=== PATIENT | male | born 1945 | race Caucasian/White ===

== ENCOUNTER 2017-11-25 06:15 | Day surgery (SDC) | payer MEDICARE, OTHER ==
[~2017-11-25] VITALS: Ht 170.2 cm; Wt 85.6 kg
[~2017-11-25 06:15] MED LIST: ASPI81EC PO; CYCL10 PO; HCTZ; HYDCHL25 PO; LISI20 PO; OXYACE5T PO; OXYC10ER PO; OXYC30ER PO; PRED20 PO; PROM25 PO; TAMS.4ER PO
[2017-11-25] MEDS ORDERED: RANI150EL (07:03)
[2017-11-25] MEDS ORDERED: Ms Contin30 MG (07:04)
[2017-11-25] MEDS ORDERED: TAGRISSO80 MG (07:05)
[2017-11-25] MEDS ORDERED: Depo-Subq104 MG/0.6 (07:05)
[2017-11-25] MEDS ORDERED: Saw Palmetto160 MG (07:06)
[2017-11-25] MEDS ORDERED: Zantac150 MG (07:06)
== END 2017-11-25 09:05 | disposition home or self-care (01) ==
LOC: ORSCSDS 06:15
PROVIDERS: Orthopaedic Surgery
PROC: 01N50ZZ Release Median Nerve, Open Approach (ICD-10-PCS; principal; 2017-11-25 07:30)
DX: G56.01 Carpal tunnel syndrome, right upper limb (principal); I10 Essential (primary) hypertension; E78.5 Hyperlipidemia, unspecified; Z79.899 Other long term (current) drug therapy; N40.0 Benign prostatic hyperplasia without lower urinary tract symptoms
CPT/HCPCS: J0690; J2250; J3010; J7120

== ENCOUNTER → 2018-06-03 | Outpatient (CLI) | payer MEDICARE, OTHER ==
[~2018-06-03] MED LIST changes: +Depo-Subq104 MG/0.6; +Ms Contin30 MG; +RANI150EL; +Saw Palmetto160 MG; +TAGRISSO80 MG; +Zantac150 MG
== END | disposition home or self-care (01) ==
LOC: LAB SHORT 08:41 → LAB EV 08:41
DX: J02.9 Acute pharyngitis, unspecified (principal)
CPT/HCPCS: 87070

== ENCOUNTER 2019-01-18 11:41 | Day surgery (SDC) | payer MEDICARE, OTHER ==
[~2019-01-18] VITALS: Ht 167 cm; Wt 84.1 kg
[~2019-01-18 11:41] MED LIST changes: +DOXY100 PO; +Depo-Testos200 MG/ML IM; -Ms Contin30 MG; +Ms Contin30 MG PO; +Percocet 10-321 EACH PO; -RANI150EL; +RANI150EL PO; -Saw Palmetto160 MG; +Saw Palmetto160 MG PO; -TAGRISSO80 MG; +TAGRISSO80 MG PO
--- NOTE | 2019-01-18 13:09 | NUR ---
Ambulatory in Day Surgery History, Chart, Medications and Allergies reviewed before start of procedure.Patient confirms NPO status and agrees with scheduled surgery. Patient reports completing Chlorhexadine shower X2 prior to admission to hospital.Surgical site prepped with 2% Chlorhexidine cloth wipe. Lungs clear T/O to Auscultation. PT GLASSES REMOVED AND GIVEN TO
--- NOTE | 2019-01-18 13:46 | NUR ---
SMALL SKIN ABRASIONS PRESENT ON RIGHT LOWER EXTREMITY. DR. ROE AWARE.
--- NOTE | 2019-01-18 18:42 | NUR ---
SHIFT SUMMARY PATIENT ARRIVED TO UNIT FROM OR IN BED. COMPLAINTS OF PAIN MEDICATED PER EMAR. PATIENT ALERT AND ORIENTED. 96% ON ROOM AIR. STATES URGE TO PEE BUT HAS YET TO VOID. BULKY DRESSING IN PLACE CDI. POLAR GIANNA IN PLACE. PULSES PALPABLE BILATERALLY. DENIES N/T.
--- NOTE | 2019-01-19 00:52 | NUR ---
PT CONT TO BE UNABLE TO VOID. PT GIVEN FLOMAX LATER TONIGHT. PT REQ TO WAIT A LITTLE WHILE LONGER AND HE WILL ATTEMPT TO VOID AGAIN, REPORTS DOES NOT WANT TO HAVE S/C AT THIS TIME.
[2019-01-19 04:24] LABS: BASOPHILS ABSOLUTE AUTO 0.01 K/mm3 (0.00-0.23); BASOPHILS PERCENT AUTO 0 % (0-2); EOSINOPHILS ABSOLUTE AUTO 0.02 K/mm3 (0.00-0.68); EOSINOPHILS PERCENT AUTO 0 % (0-6); Hematocrit 35.4 % (37.0-53.0); Hemoglobin 11.5 g/dL (13.5-17.5); IMMATURE GRAN ABSOLUTE AUTO 0.01 K/mm3 (0.00-0.10); IMMATURE GRAN PERCENT AUTO 0 % (0-1); LYMPHOCYTES ABSOLUTE AUTO 0.43 K/mm3 (0.84-5.20); LYMPHOCYTES PERCENT AUTO 9 % (21-46); MONOCYTES ABSOLUTE AUTO 0.43 K/mm3 (0.16-1.47); MONOCYTES PERCENT AUTO 9 % (4-13); Mean Corpuscular HGB 28.7 pg (26.0-34.0); Mean Corpuscular HGB Conc 32.5 g/dL (31.5-36.5); Mean Corpuscular Volume 88 fL (80-100); NEUTROPHILS ABSOLUTE AUTO 3.86 K/mm3 (1.96-9.15); NEUTROPHILS PERCENT AUTO 81 % (41-73); Platelet Count 129 K/mm3 (150-400); RDW Coefficient Variation 13.9 % (11.7-14.2); RDW Standard Deviation 45.5 fL (35.1-46.3); Red Blood Cell Count 4.01 M/mm3 (4.30-5.90); White Blood Cell Count 4.76 K/mm3 (4.00-11.30)
[2019-01-19 04:44] LABS: Bun/Creatinine Ratio 16.8 (12.0-20.0); Calcium, Blood 8.3 mg/dL (8.5-10.1); Creatinine, Blood 1.37 mg/dL (0.60-1.20); Magnesium, Blood 1.9 mg/dL (1.6-2.4)
--- NOTE | 2019-01-19 07:39 | NUR ---
SHIFT SUMMARY PT EATING AND DRINKING. PT VOIDING. PT BEEN UP TO CHAIR THIS AM. PT AMBULATED IN HALLWAY WITH ASSIST LAST NIGHT. PT BEEN ASSISTED WITH ADL'S PRN. PT BEEN MED FOR PAIN PRN.
[2019-01-19] MEDS ORDERED: ASPI325EC PO (12:15)
--- NOTE | 2019-01-19 12:16 | NUR ---
Patient is sitting on a chair with spouse, Cristina, bedside. 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 Patient is very dedicated to his Chritian debbie and finds strength and inspiration to push through the difficulties of life. I listen empathically and provided pastoral litigation counsel, quotation of inspirational Bible verses and prayer. Patient responds well and shows signs of an elevated mood.
--- NOTE | 2019-01-19 12:38 | NUR ---
Patient up to Ambulate independently. Gait steady. Discharge instructions reviewed with patient. Patient verbalizes understanding. Copy given to patient to take home. Dressing to procedure site clean, dry, intact with no visible drainage, swelling, erythema or bruising noted. Patient States Post-Procedure ride home has been arranged. Discharged via wheelchair to private car for ride home. at bedside who is at-home swimming coach or instructor. Pt given wound care supplies to take home.
== END 2019-01-19 13:33 | disposition home or self-care (01) ==
LOC: ORSCMMR 11:41 → ORD 14:00 → SURS 18:15 → ORSCMMR 01-19 13:33 → SURS 01-19 13:33
PROVIDERS: Orthopaedic Surgery
PROC: 0SRC069 Replacement of Right Knee Joint with Oxidized Zirconium on Polyethylene Synthetic Substitute, Cemented, Open Approach (ICD-10-PCS; principal; 2019-01-18 14:00)
DX: M17.11 Unilateral primary osteoarthritis, right knee (principal); I10 Essential (primary) hypertension; N40.0 Benign prostatic hyperplasia without lower urinary tract symptoms; Z79.82 Long term (current) use of aspirin; Z79.899 Other long term (current) drug therapy; E78.5 Hyperlipidemia, unspecified
CPT/HCPCS: 36415; 73560-RT; 80048; 83735; 85025; 86850; 86900; 86901; 88300; 97110; 97116; 97161; 97530; C1713; C1776; J0171; J0690; J0735; J1170; J1885; J2250; J2270; J2370; J2405; J2704; J2795; J3010; J7120

== ENCOUNTER → 2021-06-07 | Outpatient (CLI) | payer MEDICARE, OTHER ==
[~2021-06-07] MED LIST changes: +ASPI325EC PO; +Aspirin EC81 MG PO; +Cialis5 MG; +Cyclobenzaprine5 MG; +DOXYCYCLINE HY100 M1 PO; +Depo-Testo100 MG/1 M; +MORP30 PO; +Oxybutynin Chlo10 MG PO; +PERCOCET 10-321 EAC2 PO; +PROM25; +Ranitidine HCl150 M1 PO; +ZESTRIL40 M1 PO
[2021-06-07 15:17] LABS: BASOPHILS ABSOLUTE AUTO 0.01 K/mm3 (0.00-0.23); BASOPHILS PERCENT AUTO 0 % (0-2); EOSINOPHILS ABSOLUTE AUTO 0.17 K/mm3 (0.00-0.68); EOSINOPHILS PERCENT AUTO 4 % (0-6); Hematocrit 37.8 % (37.0-53.0); Hemoglobin 13.3 g/dL (13.5-17.5); IMMATURE GRAN ABSOLUTE AUTO 0.01 K/mm3 (0.00-0.10); IMMATURE GRAN PERCENT AUTO 0 % (0-1); LYMPHOCYTES ABSOLUTE AUTO 0.62 K/mm3 (0.84-5.20); LYMPHOCYTES PERCENT AUTO 13 % (21-46); MONOCYTES PERCENT AUTO 8 % (4-13); Mean Corpuscular HGB Conc 35.2 g/dL (31.5-36.5); Mean Corpuscular Volume 85 fL (80-100); Mean Platelet Volume 9.5 fL (9.1-12.4); NEUTROPHILS ABSOLUTE AUTO 3.58 K/mm3 (1.96-9.15); NEUTROPHILS PERCENT AUTO 75 % (41-73); Platelet Count 169 K/mm3 (150-400); RDW Coefficient Variation 12.8 % (11.7-14.2); RDW Standard Deviation 39.7 fL (35.1-46.3); Red Blood Cell Count 4.44 M/mm3 (4.30-5.90); White Blood Cell Count 4.79 K/mm3 (4.00-11.30)
[2021-06-07 15:32] LABS: Albumin, Blood 3.6 g/dL (3.4-5.0); Albumin/Globulin Ratio 1.2 (0.8-1.8); Bilirubin, Total 0.6 mg/dL (0.1-1.0); Bun/Creatinine Ratio 21.6 (12.0-20.0); Calcium, Blood 8.8 mg/dL (8.5-10.1); Creatinine, Blood 1.71 mg/dL (0.60-1.20); Potassium, Blood 4.8 mmol/L (3.5-5.5); Total Protein, Blood 6.6 g/dL (6.4-8.2)
== END | disposition home or self-care (01) ==
LOC: LAB SHORT 15:10
PROVIDERS: Physician Assistant
DX: R07.89 Other chest pain (principal); R06.00 Dyspnea, unspecified
CPT/HCPCS: 80053; 83880; 84484; 85025; 85379

== ENCOUNTER → 2021-06-09 | Outpatient (CLI) | payer MEDICARE, OTHER ==
[2021-06-09 10:57] LABS: BASOPHILS ABSOLUTE AUTO 0.02 K/mm3 (0.00-0.23); BASOPHILS PERCENT AUTO 0 % (0-2); EOSINOPHILS ABSOLUTE AUTO 0.11 K/mm3 (0.00-0.68); EOSINOPHILS PERCENT AUTO 2 % (0-6); Hematocrit 37.7 % (37.0-53.0); Hemoglobin 12.9 g/dL (13.5-17.5); IMMATURE GRAN ABSOLUTE AUTO 0.03 K/mm3 (0.00-0.10); IMMATURE GRAN PERCENT AUTO 1 % (0-1); LYMPHOCYTES ABSOLUTE AUTO 0.37 K/mm3 (0.84-5.20); LYMPHOCYTES PERCENT AUTO 8 % (21-46); MONOCYTES ABSOLUTE AUTO 0.37 K/mm3 (0.16-1.47); MONOCYTES PERCENT AUTO 8 % (4-13); Mean Corpuscular HGB 29.6 pg (26.0-34.0); Mean Corpuscular HGB Conc 34.2 g/dL (31.5-36.5); Mean Corpuscular Volume 87 fL (80-100); Mean Platelet Volume 9.2 fL (9.1-12.4); NEUTROPHILS PERCENT AUTO 81 % (41-73); Platelet Count 183 K/mm3 (150-400); RDW Coefficient Variation 12.7 % (11.7-14.2); RDW Standard Deviation 40.3 fL (35.1-46.3); Red Blood Cell Count 4.36 M/mm3 (4.30-5.90)
[2021-06-09 11:26] LABS: Bun/Creatinine Ratio 21.1 (12.0-20.0); Creatinine, Blood 1.33 mg/dL (0.60-1.20); Potassium, Blood 4.8 mmol/L (3.5-5.5)
== END ==
LOC: LAB 10:51 → LAB SHORT 10:51
PROVIDERS: Physician Assistant
DX: J18.9 Pneumonia, unspecified organism (principal)
CPT/HCPCS: 80048; 85025

== ENCOUNTER 2021-06-13 22:36 | Inpatient (IN) | payer MEDICARE, OTHER ==
[~2021-06-13] VITALS: Ht 170.2 cm; Wt 86.2 kg
[2021-06-13 23:04] LABS: BASOPHILS ABSOLUTE AUTO 0.02 K/mm3 (0.00-0.23); BASOPHILS PERCENT AUTO 0 % (0-2); EOSINOPHILS ABSOLUTE AUTO 0.19 K/mm3 (0.00-0.68); EOSINOPHILS PERCENT AUTO 3 % (0-6); Hematocrit 38.6 % (37.0-53.0); Hemoglobin 13.2 g/dL (13.5-17.5); IMMATURE GRAN ABSOLUTE AUTO 0.05 K/mm3 (0.00-0.10); IMMATURE GRAN PERCENT AUTO 1 % (0-1); LYMPHOCYTES ABSOLUTE AUTO 0.55 K/mm3 (0.84-5.20); LYMPHOCYTES PERCENT AUTO 8 % (21-46); MONOCYTES ABSOLUTE AUTO 0.52 K/mm3 (0.16-1.47); MONOCYTES PERCENT AUTO 8 % (4-13); Mean Corpuscular HGB 29.1 pg (26.0-34.0); Mean Corpuscular HGB Conc 34.2 g/dL (31.5-36.5); Mean Corpuscular Volume 85 fL (80-100); Mean Platelet Volume 9.8 fL (9.1-12.4); NEUTROPHILS ABSOLUTE AUTO 5.38 K/mm3 (1.96-9.15); NEUTROPHILS PERCENT AUTO 80 % (41-73); Platelet Count 179 K/mm3 (150-400); RDW Coefficient Variation 12.7 % (11.7-14.2); RDW Standard Deviation 39.3 fL (35.1-46.3); Red Blood Cell Count 4.53 M/mm3 (4.30-5.90); White Blood Cell Count 6.71 K/mm3 (4.00-11.30)
[2021-06-13 23:16] LABS: Albumin, Blood 2.7 g/dL (3.4-5.0); Albumin/Globulin Ratio 0.8 (0.8-1.8); Bilirubin, Total 0.6 mg/dL (0.1-1.0); Bun/Creatinine Ratio 21.2 (12.0-20.0); Calcium, Blood 9.1 mg/dL (8.5-10.1); Creatinine, Blood 1.46 mg/dL (0.60-1.20); Globulin, Blood 3.6 g/dL (2.2-4.0); Potassium, Blood 4.7 mmol/L (3.5-5.5); Total Protein, Blood 6.3 g/dL (6.4-8.2)
[2021-06-14 00:17] LABS: Influenza A, PCR NEGATIVE (NEGATIVE); Influenza B, PCR NEGATIVE (NEGATIVE); Resp Syncytial Virus, PCR NEGATIVE (NEGATIVE); SARS-Cov-2 (COVID-19) PCR, MMC NEGATIVE (NEGATIVE)
--- NOTE | 2021-06-14 03:46 | NUR ---
PT ARRIVED WITH ALEJANDRO PAYNE FROM THE ED AT 0245. WEARING THE NON-REBREATHER AT 10L, PT COMPLAINING OF PAIN AND SHORTNESS OF BREATH. OXYGEN TURNED UP TO 15L AND MEDICATED WITH THE MS CONTIN. HE STATES THAT HE TAKES HIS PAIN MEDS DIFFERENTLY THAN PRESCRIBED SO WILL NEED TO DISCUSS THAT WITH ROUNDING DOCS IN THE AM. 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 HE STATES HE HAS PAIN ALL THE TIME. HE STATES HE BEGAN WITH THIS ILLNESS LAST WEEK BUT HAS CONTINUED TO STRUGGLE TO GET HIS BREATH. HIS LUNGS ARE DIMINISHED THROUGHOUT AND TIGHT. HE IS STILL TRYING TO BE INDEPENDENT, IE WITH WANTING TO STAND TO USE THE URINAL, HE DROPPED HIS SATS TO MID 70'S WHILE STANDING TO VOID. I OFFERED HIM A CATHETER AND HE DECLINED AT THIS TIME. WAS IN TO SEE THE PATIENT BEFORE HEADING HOME FOR REST. PT SHOWN THE CALL LIGHT AND BED ADJUSTMENTS.
--- NOTE | 2021-06-14 06:30 | NUR ---
ALEX HAS BEEN TRYING TO REST SINCE ARRIVAL, HE CONTINUES TO HAVE BOUTS OF PAIN AND GRABS AT HIS TRUNK. HE HAS BEEN MEDICATED WITH THE M.S. CONTIN AND THE SCHEDULED OXYCODONE. HE HAS BEEN TAKING IN FLUIDS BY SIPS. HE DOESN'T TOLERATE BEING OFF THE NRB FOR ANY PERIOD OF TIME WITHOUT FEELING SHORT OF BREATH AND HIS SATS BEGINNING TO DROP. HE HAS BEEN HAVING R-ON-T PVC'S AND SOME RUNS OF SVT. HIS BLOOD PRESSURE REMAIN 130'S/70S, SATS 95%. USES URINAL APPROPRIATELY. WILL CONTINUE TO MONITOR AND REPORT OFF WHEN ABLE.
--- NOTE | 2021-06-14 09:59 | NUR ---
UPDATE: DR ALVES @ BEDSIDE. DISCUSSED CONCERNS FOR PT's PERSISTENT PAIN & HOME PAIN MED REGIMEN. ORDERS GIVEN FOR 1-2 TABS OXYCODONE 10/325 q6hr & TO CHANGE MORPHINE ORDER TO BID THIS IS CLOSEST TO WHAT & HOW HE TAKES HIS MEDS @ HOME. PT & SPOUSE @ BEDSIDE ARE AGREEABLE, PT MEDICATED ACCORDINGLY. PT VERBALIZES NERVOUSNESS ABOUT TAKING OFF HF MASK TO TAKE MEDS, APPEARS ANXIOUS & PANICKED WHEN MASK IS SHORTLY REMOVED FOR ESTIMATOR PRINTING. SPO2 MAINTAINED >90%, NO SOB OR DYSPNEA NOTED. CALL LIGHT W/IN REACH, PT ABLE TO MAKE NEEDS KNOWN.
--- NOTE | 2021-06-14 11:37 | NUR ---
UPDATE: HOSP ROUNDING. HOSPITALISTLUL, @ BEDSIDE FOR AM ROUNDS. UPDATED ON MORNING EVENTS. PT APPEARS MUCH MORE COMFORTABLE. RESTING IN BED W/ EYES CLOSED. AWAKES EASILY TO VERB STIM. SATS IMPROVED TO 95% ON VENTI MASK @ 100% FiO2.
--- NOTE | 2021-06-14 14:00 | NUR ---
PT UNABLE TO TOLERATE BREAK FROM VENTI MASK LONG ENOUGH TO EAT LUNCH, THOUGH ABLE TO TAKE SM BITES OF JELLO. PT STS HE FEELS TOO SOB TO CHEW & DOESN'T FEEL SAFE EATING FOOD. SATS UNCHNAGED, 88-92%. PT DROWSY. EASILY AWAKENED W/ VERB STIM BUT QUICKLY RETURNS TO SLEEPING. PALLIATIVE CARE RN CALLED & DISCUSSED CONCERNS FOR PT COMFORT/PAIN CONTROL AFTER BEING DC'd. ALEJANDRO LEMUS TO F/U W/ PT & FAMILY SHORTLY.
--- NOTE | 2021-06-14 15:18 | NUR ---
Initial Interview with [facility] Community Inpatient Auditor 1. Who did you speak with? Spoke with patient's Cristina 2. What is the patient's prior level of functions? Patient lives independently with spouse. Patient is able to perform ADL's without assistance, but due to needing a left knee replacement he has been using crutches. Also, we went to urgent care last Thursday and Oxygen was ordered from [facility]. 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 They live in a single [place] home 2BD 2BA with one step at the entrance. Patient has four children, two daughters whom live locally and two sons who live in [place]. Patient and his have several sibling who live locally as well. Patient has strong support network. 3. Is the patient and/or family able to provide transportation to and from doctor's appointments and slat pickler prescriptions? 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 He is able to provide transportation to and from appointments and slat pickler medication from pharmacy as needed. 4. Does patient still drive? Yes 5. POA/PCP/NOK: Spouse Cristina [phone]/PCP: LES Bustamante 6. Discharge goals: TBD -Intermediate Facility/Home Health: TBD/no preference -DME: Oxygen and crutches -Medication Management: self manages -Preferred Pharmacy: [facility] -Housekeeping/Cooking: takes care of cooking and housekeeping 7. List barriers to discharge: None known at this time 8. Discharge Plan: TBD 9. PCP Follow up appointment: Will be scheduled within seven calendar days of discharge 10. Other Notes: Palliative Care consulted
--- NOTE | 2021-06-14 17:14 | NUR ---
REPORT GIVEN TO TEACHER OF THE VISUALLY IMPAIRED. PT OOTD W/OUT INCIDENT.
--- NOTE | 2021-06-14 17:38 | NUR ---
Met with pt and family today, pt tells me he has been fighting cancer for 6 years, when he was initally given a 6 month sentence. He is alert, oriented and pleasant. He is requiring 100% Oxygen at this time, and understands he may not recover from the current bout of pneumonia. He also reports pain in intercostal region as well as far L side of chest. States its likely from the broken ribs on the L side that broke due to cancer. Pt does report he is getting "tired", and tells me he is sure about his DNR status, would not want to be intubated under any circumstances. I had an in depth discussion with pt and family at the bedside regarding options, including comfort care. The patient asked very specific questions about what comfort care looks like, and I explained that the focus of comfort care becomes, literally, more about his comfort and less about his oxygen levels, and that we would be more liberal with pain and anxiety medications, and would give roxanol to help prevent air hunger. And in this scenario, he would slip into unconciousness r/t hypoxia, and we would continue to make sure he is comfortable, and his family would be able to be with him. He verbalized understanding. The patient requested an increase in pain med frequency, states he is not getting adequate pain control. During the visit, pt's Biox was between 88 and 90%. When it slipped below 88%, bedside RN Karen called RT to assist with bi-pap. I called Dr. Isbell and received orders for increase Oxycodone/Apap frequency, begin Solumedrol, and prn lorazepam to assist in him tolerating bi-pap. Will remain available.
[2021-06-14] MEDS ORDERED: ATEN25 PO (17:58)
[2021-06-14] MEDS ORDERED: ONDA4 PO (17:59)
[2021-06-14] MEDS ORDERED: THERA-D2000 UNIT PO (18:00)
[2021-06-14] MEDS ORDERED: TADA10TA (18:00)
[2021-06-14] MEDS ORDERED: CATAPRES0.1 MG PO (18:02)
--- NOTE | 2021-06-14 18:22 | NUR ---
ARRIVAL TO PCU/SHIFT SUMMARY PATIENT ARRIVED TO PCU BY ICE BED AT APROXX 1630. PATIENT WAS TRASNFERED TO PCU BED VIA SLIDER SHEET. PATIENT FAMILY AT BEDSIDE. PATIENT IS ALERT AND ORIENTED X4. PERRLA. NEURO IS INTACT. VSS. TELE SR 70S. PATIENT REPORTS NO CHEST PAIN/PRESSURE. STRONG PULSES RADIAL AND PEDIS. PATIENT HAS +1 LOWER EXTREMITY EDEMA BILATERALLY. SPO2 >90% ON VENTI MASK 80L 100%. PATIENT LUNG SOUNDS CLEAR/DIM. PATIENT ABD IS SOFT NONTENDER, HYPOACTIVE. PATIENT REPORTS PAIN IN SHOULDERS, AND RIBS THAT IS A CHRONIC PAIN. PATIENT REPOSITIONED FOR COMFORT CAN NOT HAVE ANOTHER PAIN MEDICATION UNTIL 2116. SEE PALLIATIVE CARE NOTE FOR MORE DETAILS TO PLAN IF PATIENT O2 DEMAND INCREASES. PATIENT NUMBER AND SONS NUMBER IS ON WHITEBOARD IN THE ROOM, AND WOULD LIKE TO BE CALLED IF PATIENT DECLINES OVER NIGHT. CALL LIGHT WITHIN REACH AND FAMILY AT BEDSIDE. WILL CONTINUE TO MONITOR AND PROVIDE CARE UNTIL HAND OFF WITH NEXT SHIT.
[2021-06-14 21:42] LABS: International Normalized Ratio 1.42; Prothrombin Time Results 14.6 Sec (9.7-11.5)
[2021-06-15 04:06] LABS: BASOPHILS ABSOLUTE AUTO 0.01 K/mm3 (0.00-0.23); BASOPHILS PERCENT AUTO 0 % (0-2); EOSINOPHILS ABSOLUTE AUTO 0.02 K/mm3 (0.00-0.68); EOSINOPHILS PERCENT AUTO 0 % (0-6); Hemoglobin 12.4 g/dL (13.5-17.5); IMMATURE GRAN ABSOLUTE AUTO 0.03 K/mm3 (0.00-0.10); IMMATURE GRAN PERCENT AUTO 1 % (0-1); LYMPHOCYTES ABSOLUTE AUTO 0.23 K/mm3 (0.84-5.20); LYMPHOCYTES PERCENT AUTO 5 % (21-46); MONOCYTES ABSOLUTE AUTO 0.12 K/mm3 (0.16-1.47); MONOCYTES PERCENT AUTO 2 % (4-13); Mean Corpuscular HGB 29.2 pg (26.0-34.0); Mean Corpuscular HGB Conc 33.5 g/dL (31.5-36.5); Mean Corpuscular Volume 87 fL (80-100); Mean Platelet Volume 9.7 fL (9.1-12.4); NEUTROPHILS PERCENT AUTO 92 % (41-73); Platelet Count 152 K/mm3 (150-400); RDW Coefficient Variation 12.6 % (11.7-14.2); RDW Standard Deviation 40.1 fL (35.1-46.3); Red Blood Cell Count 4.25 M/mm3 (4.30-5.90); White Blood Cell Count 4.91 K/mm3 (4.00-11.30)
[2021-06-15 04:23] LABS: Albumin, Blood 2.5 g/dL (3.4-5.0); Albumin/Globulin Ratio 0.7 (0.8-1.8); Bilirubin, Total 0.7 mg/dL (0.1-1.0); Bun/Creatinine Ratio 23.7 (12.0-20.0); Calcium, Blood 8.4 mg/dL (8.5-10.1); Creatinine, Blood 1.35 mg/dL (0.60-1.20); Globulin, Blood 3.6 g/dL (2.2-4.0); Potassium, Blood 5.1 mmol/L (3.5-5.5); Total Protein, Blood 6.1 g/dL (6.4-8.2)
--- NOTE | 2021-06-15 09:14 | NUR ---
CARE ASSUMPTION PATIENT IS ALERT AND ORIENTED X4. PERRLA. NEURO IS INTACT. VSS. SPO2 >90% ON VENTI MASK 75L 95% AND RR 28. PATIENT DID REPORT SOME DIFFICULTY BREATHING AND RT NOTIFED. LUNG SOUNDS CLEAR/DIM. PATIENT REPORTS RIB PAIN, SHOULDER, BACK, AND LEG PAIN. PATIENT RECEIVED PAIN MED PER EMAR AND OFFERED NONPHARMALOGICAL OPTIONS FOR RELIEF. SEE SHIFT ASSESSMENT FOR FULL DETAILS. PATIENT FAMILY IS AT BEDSIDE. THIS RN PROVIDED ACTIVE LISTENING AND THERPAUETIC COMMUNICATION WHEN FAMILY ADDRESS CONCERNS AND WHEN PATIENT WAS TALKING ABOUT HIS PREVIOUS JOB. BED IS IN LOWEST POSITION AND CALL LIGHT WITHIN REACH. WILL CONTINUE TO MONITOR AND PROVIDE CARE.
--- NOTE | 2021-06-15 13:18 | NUR ---
Supportive visit this afternoon. Spoke with Dr Pinedo and discussed case. Pt resting in bed upon arrival. Pt's spouse at bedside. Pt reports tolerable 4/10 generalized pain. Offered therapeutic listening and answered questions. Reviewed current plan of care. Pt and spouse report no concerns at this time. Palliative Care will remain available.
--- NOTE | 2021-06-15 17:42 | NUR ---
SHIFT SUMMARY PATIENT NEURO REMAINS INTACT AND UNCHAGED. PATIENT HAS NO PAIN AT THIS TIME, BUT WILL CONTINUE TO MONITOR. PATIENT FAMILY IS STILL AT BEDSIDE. NO ACUTE CHANGES THIS SHIFT. CALL LIGHT WITHIN REACH. WILL CONTINUE TO MONITOR AND PROVIDE CARE UNTIL HAND OFF WITH THE NEXT SHIFT.
--- NOTE | 2021-06-16 05:38 | NUR ---
SHIFT SUMMARY: PATIENT CONTINUES TO HAVE PAIN, SHORTNESS OF BREATH AND DYSPNEA WITH DESAT TO 80'S WITH TALKING, ACTIVITY AND TAKING MEDICATION. IF O2 IS REMOVED ANY LONGER THAN FOR A BRIEF SIP OF DRINK, SUCH WHEN CLEANING OUT NOSE, HE DESATS TO 70'S. PT EXPERIENCED MORE CHEST TIGHTNESS THAN THE PREVIOUS NIGHT. THIS IS RELIEVED WITH OXYCODONE. PT AND FAMILY REQUEST THAT PRN OXYCODONE AND LORAZEPAM BE GIVEN ON THE 4 HOUR SOHEILA TO PREVENT SIGNIFICANT DISCOMFORT. OVERNIGHT THESE MEDS WERE ALTERNATED SO THAT HE HAS EITHER THE OXYCODONE OR THE LORAZEPAM EVERY 2 HOURS. PT WAS ABLE TO REST BETTER WITHOUT BEING LETHARGIC AND IS STILL EASILY AWAKENED. RT WAS CONTACTED THIS MORNING WHEN AUSCULTATION OF LUNGS SOUNDED MORE TIGHT AND RESTRICTIVE BREATHING. THEY REPORTED THAT THEY WOULD PURSUE A PRN ORDER FOR BREATHING TREATMENTS AFTER FINDING THAT PT HAD EXPERIENCED SOME MILD IMPROVEMENT IN COMFORT LEVEL WITH BREATHING TREATMENT AT HOME. VITALS REMAINED STABLE OVERNIGHT WITH OCC ELEVATED BP WITH INCREASED PAIN.
--- NOTE | 2021-06-16 08:15 | NUR ---
CARE ASSUMPTION PATIENT IS ALERT AND ORIENTED X4. PERRLA. NEURO IS INTACT. PATIENT REPORTS NO NUMBNESS OR TINGLING. PATIENT VSS. TELE SR. PATIENT REPORTS CHEST TIGHTNESS WITH DEEP INHALATION, AND TIGHTNESS IS MORE RESPIRATORY THAN CARDIAC. STRONG PEDIS AND RADIAL PULSES. PATIENT LUNG SOUNDS CLEAR/DIM. SPO2 RANGE FROM 88-94% ON 70L 100%. PATIENT STATED SOME DIFFICULTY BREATHING THIS MORNING. PATIENT REPORTED PAIN AT 5 ON A SCALE OF 1-10, 10 BEING THE WORST. PATIENT RECEIVED PAIN MED PER EMAR, AND OFFERED TO BE REPOSITIONED AND NONPHARMACOLOGICAL PAIN CONTROL METHODS. SEE SHIFT ASSESSMENT FOR FULL DETAILS. PATIENT FAMILY AT BEDSIDE. PATIENT SPIRITS SEE TO BE UP THIS MORNING. PATIENT TALKING AND KEEPING O2 SATS ABOVE 88% AND TAKING LONGER TO BECOME SHORT OF BREATH, AND QUICKER RECOVERY TIME. THIS RN OFFERED ACTIVE LISTENING AND THERAPEUTIC COMMUNICATION TO BOTH PATIENT AND FAMILY. CALL LIGHT WITHIN REACH. WILL CONTINUE TO MONITOR AND PROVIDE CARE.
[2021-06-16 09:03] LABS: BASOPHILS ABSOLUTE AUTO 0.01 K/mm3 (0.00-0.23); BASOPHILS PERCENT AUTO 0 % (0-2); EOSINOPHILS PERCENT AUTO 0 % (0-6); Hematocrit 39.1 % (37.0-53.0); Hemoglobin 12.8 g/dL (13.5-17.5); IMMATURE GRAN ABSOLUTE AUTO 0.07 K/mm3 (0.00-0.10); IMMATURE GRAN PERCENT AUTO 1 % (0-1); LYMPHOCYTES ABSOLUTE AUTO 0.36 K/mm3 (0.84-5.20); LYMPHOCYTES PERCENT AUTO 4 % (21-46); MONOCYTES ABSOLUTE AUTO 0.37 K/mm3 (0.16-1.47); MONOCYTES PERCENT AUTO 4 % (4-13); Mean Corpuscular HGB 28.5 pg (26.0-34.0); Mean Corpuscular HGB Conc 32.7 g/dL (31.5-36.5); Mean Corpuscular Volume 87 fL (80-100); Mean Platelet Volume 9.8 fL (9.1-12.4); NEUTROPHILS ABSOLUTE AUTO 7.98 K/mm3 (1.96-9.15); NEUTROPHILS PERCENT AUTO 91 % (41-73); Platelet Count 210 K/mm3 (150-400); RDW Coefficient Variation 12.6 % (11.7-14.2); RDW Standard Deviation 40.1 fL (35.1-46.3); Red Blood Cell Count 4.49 M/mm3 (4.30-5.90); White Blood Cell Count 8.79 K/mm3 (4.00-11.30)
[2021-06-16 09:22] LABS: Bun/Creatinine Ratio 31.4 (12.0-20.0); Calcium, Blood 8.6 mg/dL (8.5-10.1); Creatinine, Blood 1.37 mg/dL (0.60-1.20); Potassium, Blood 4.5 mmol/L (3.5-5.5)
[2021-06-16 09:24] LABS: Vancomycin, Trough 14.2 ug/mL (5.0-10.0)
--- NOTE | 2021-06-16 10:02 | NUR ---
Supportive visit this AM. Pt resting in bed wearing high flow O2 mask at 70L 100% FIO2. Family at bedside. Offered therapeutic listening and discussed current pain regimen. As Pt continues to speak his O2 saturations drop to 87%. Ended visit to allow Pt to rest. Spoke with Primary RN Catherine and discussed case. Palliative Care will remain available for supportive and therapeutic visits.
[2021-06-16 10:35] LABS: Adenovirus Not Detected (NOT DETECT); Bordetella pertussis Not Detected (NOT DETECT); Chlamydophila pneumoniae Not Detected (NOT DETECT); Coronavirus 229E Not Detected (NOT DETECT); Coronavirus HKU1 Not Detected (NOT DETECT); Coronavirus NL63 Not Detected (NOT DETECT); Coronavirus OC43 Not Detected (NOT DETECT); Human Metapneumovirus Not Detected (NOT DETECT); Human Rhinovirus/Enterovirus Not Detected (NOT DETECT); Influenza A/2009-H1 Not Detected (NOT DETECT); Influenza A/H1 Not Detected (NOT DETECT); Influenza A/H3 Not Detected (NOT DETECT); Influenza B Not Detected (NOT DETECT); Mycoplasma pneumoniae Not Detected (NOT DETECT); Parainfluenza Virus 1 Not Detected (NOT DETECT); Parainfluenza Virus 2 Not Detected (NOT DETECT); Parainfluenza Virus 3 Not Detected (NOT DETECT); Parainfluenza Virus 4 Not Detected (NOT DETECT); Respiratory Syncytial Virus Not Detected (NOT DETECT); SARS-Cov-2 (COVID-19), BioFire Not Detected (NOT DETECT)
--- NOTE | 2021-06-16 13:35 | NUR ---
UPDATE PATIENT REPORTED PAIN AT 5, ON A SCALE FROM 1-10, 10 BEING THE WORST PAIN. PATIENT RECEIVED PAIN MED PER EMAR. UPON REASSESSMENT PATIENT STATED PAIN IS RATED AT 4. PATIENT ATE 95% OF HIS LUNCH, WHICH IS AN IMPROVEMENT FROM YESTERDAY. OTHERWISE NO CHANGES AT THIS POINT IN TIME. FAMILY IS AT BEDSIDE AND CALL LIGHT WITHIN REACH. WILL CONTIINUE TO MONITOR AND PROVIDE CARE.
--- NOTE | 2021-06-16 17:04 | NUR ---
SHIFT SUMMARY PATIENT NEURO REMAINS INTACT. PATIENT REPORTED PAIN OF 5, GENERALIZED PAIN. PATIENT RECEIVED PAIN MEDICATION PER EMAR. UPON REASSESSMENT PATIENT PAIN LEVEL WAS 4, AND OFFERED OTHER WAYS OF PAIN MANAGEMENT. PATIENT RECEIVED IN ATIVAN ONCE THIS. PATIENT CONTINUES TO HAVE GOOD SPIRITS AND JOKING AROUND. PATIENT STATES HE DOES FEEL IF HE HAS IMPROVE SLIGHTLY AND EXPRESSED HOW HE HOPES HE CONTINUES TO IMPROVE. HIS FAMILY EVEN STATES HE LOOKS BETTER. FAMILY IS STILL AT BEDSIDE. FAMILY HELP ASSIST WITH PATIENT ADLS, AND THIS RN INFORMED THEM THAT WE CAN DO THAT, BUT THEY HAVE INSISTED. NO ACUTE CHANGES THIS SHIFT. CALL LIGHT WITHIN REACH AND BED IN LOWEST POSITION.
--- NOTE | 2021-06-17 05:36 | NUR ---
PATIENT REMAINS IN BED AND FOLLOW COMMANDS. PATIENT AFEBRILE, PAIN TO GENERALIZED BODY AND MANAGED WITH OXY AROUND THE CLOCK SCHEDULED. PATIENT CONTINENT OF BLADDED AND BOWEL, WITH CLEAR YELLOW URINE NOTED. FREQUENT ROUNDS TO ENSURE PATIENT SAFETY. PATIENT REFUSED TO BE TURNED AND REPOSITION Q 2 HOURS. PATIENT IN NO APPARENT DISTRESS. WILL CONTINUE TO MONITOR PATIENT CONDITION UNTIL ONCOMING RN.
--- NOTE | 2021-06-17 14:32 | NUR ---
Visit made today to pt's room. Both of his sons wecheikh present today, along with his daughter in law. Pt's current 02 remains at 70L with 90% FI02. He continues taking oxycone/apap every 4 hour most of the time, along with MS Contin scheduled twice daily. This helps with pain and air hunger. No major changes in condition, but family and pt state they do feel encouraged by the subtle changes. I wiil remain available.
--- NOTE | 2021-06-17 17:03 | NUR ---
SHIFT SUMMARY PT ALERT AND ORIENTED. HR NSR. BP STABLE. O2 SATS >88% ON HEATED HIGH FLOW AT 80L AND 95% VIA VENTURI MASK. PT DESATURATES WITH MINIMAL ACTIVITY TO HIGH 70'S AND TAKES MINUTES TO RECOVER. LS COARSE THROUGHOUT. PT UNABLE TO COUGH UP SECRETIONS DUE TO PAIN. PT MEDICATED FOR PAIN THROUGHOUT SHIFT REQUESTED. FAMILY PROVIDED CARE FOR PT NEEDS AT BEDSIDE. PT REPOSITIONED Q2H. WILL CONTINUE TO MONITOR AND REPORT TO ONCOMING RN
--- NOTE | 2021-06-18 05:47 | NUR ---
SHIFT SUMMARY NO ACUTE CHANGES THIS SHIFT. PT REMAINS AXO. IN SR. MILD HTN NOTED. REQUIRING AROUND THE CLOCK PAIN MEDICATION. PT ON VENTI MASK 80L 100%, SPO2 >88% BUT TENDS TO DESAT TO <70% AT TIMES WITH EXERETION, MASK REMOVAL, ETC. NO BM THIS SHIFT. FAMILY ASSISTING WITH ADL'S AND PERSONAL CARE. PT USING URINAL WELL. CARMELITALIDE REMAINS PATENT, DRAWS WELL. SON AT BEDSIDE. FAMILY OPTIMISITC ABOUT PT'S RECOVERY BUT UNDERSTAND THE REALISTIC PROGRESSION OF THE PATIENS DISEASE PROCESS/HEALTH STATUS. PT REFUSING TO BE TURNED WITH STAFF AND WITHPILLOWS UNDERNEATH HIM. PREFERS TO SLEEP FOWLERS. OTHERWISE, PT MAKES NEEDS KNOWN. USES CALL LIGHT TO MAKE NEEDS KNOWN. BED ALARM ON. PT HAS BEEN TURNED IN BED
[2021-06-18 08:23] LABS: BASOPHILS ABSOLUTE AUTO 0.01 K/mm3 (0.00-0.23); BASOPHILS PERCENT AUTO 0 % (0-2); EOSINOPHILS ABSOLUTE AUTO 0.13 K/mm3 (0.00-0.68); EOSINOPHILS PERCENT AUTO 2 % (0-6); Hematocrit 40.1 % (37.0-53.0); Hemoglobin 13.5 g/dL (13.5-17.5); IMMATURE GRAN ABSOLUTE AUTO 0.11 K/mm3 (0.00-0.10); IMMATURE GRAN PERCENT AUTO 1 % (0-1); LYMPHOCYTES ABSOLUTE AUTO 0.49 K/mm3 (0.84-5.20); LYMPHOCYTES PERCENT AUTO 6 % (21-46); MONOCYTES ABSOLUTE AUTO 0.53 K/mm3 (0.16-1.47); MONOCYTES PERCENT AUTO 7 % (4-13); Mean Corpuscular HGB Conc 33.7 g/dL (31.5-36.5); Mean Corpuscular Volume 86 fL (80-100); Mean Platelet Volume 10.3 fL (9.1-12.4); NEUTROPHILS ABSOLUTE AUTO 6.56 K/mm3 (1.96-9.15); NEUTROPHILS PERCENT AUTO 84 % (41-73); Platelet Count 259 K/mm3 (150-400); RDW Coefficient Variation 12.9 % (11.7-14.2); RDW Standard Deviation 40.5 fL (35.1-46.3); Red Blood Cell Count 4.66 M/mm3 (4.30-5.90); White Blood Cell Count 7.83 K/mm3 (4.00-11.30)
[2021-06-18 08:48] LABS: Bun/Creatinine Ratio 35.2 (12.0-20.0); Calcium, Blood 8.8 mg/dL (8.5-10.1); Creatinine, Blood 1.25 mg/dL (0.60-1.20); Potassium, Blood 5.3 mmol/L (3.5-5.5)
--- NOTE | 2021-06-18 17:12 | NUR ---
Made a visit earlier today, around 1145am to see pt. He remains in bed, at [facility] upright at 30 degree angle, wearing 02 mask, NOT a cpap or bipap. According to patient and bedside RN, pt has decided against use of these items, and if his oxygen saturation becomes unsustainable, he will change his status to comfort care, and allow staff to focus on his comfort. He is currently on 80 FiO2, at 100% Oxygen. I will continue to see this patient daily.
--- NOTE | 2021-06-18 17:33 | NUR ---
SHIFT SUMMARY PT A/O X4 AND COOPERATIVE OF CARE. SBP'S 140-150'S, OTHER VSS THROUGHOUT SHIFT. PT REMAINED ON VENTI MASK 80L/100% FOR ENTIRE SHIFT, SATS >90% THROUGHOUT SHIFT. PT REPORTED CHEST PRESSURE WHEN TAKING IN DEEP BREATHS, STATED "COMES AND GOES", TREATED PER EMAR. NO REPORT OF SOB BY PT. MULTIPLE FAMILY MEMBERS PRESENT THROUGHOUT SHIFT, FAMILY HELPED WITH MANY OF ADL'S. PT VERY PARTICULAR ON PAIN MANAGEMENT, SCHEDULE WRITTEN ON WHITE BOARD. BED IN LOWEST POSITION, CALL LIGHT WITHIN REACH.
[2021-06-19 04:24] LABS: BASOPHILS ABSOLUTE AUTO 0.02 K/mm3 (0.00-0.23); BASOPHILS PERCENT AUTO 0 % (0-2); EOSINOPHILS ABSOLUTE AUTO 0.26 K/mm3 (0.00-0.68); EOSINOPHILS PERCENT AUTO 3 % (0-6); Hematocrit 42.5 % (37.0-53.0); IMMATURE GRAN ABSOLUTE AUTO 0.23 K/mm3 (0.00-0.10); IMMATURE GRAN PERCENT AUTO 3 % (0-1); LYMPHOCYTES ABSOLUTE AUTO 0.79 K/mm3 (0.84-5.20); LYMPHOCYTES PERCENT AUTO 8 % (21-46); MONOCYTES ABSOLUTE AUTO 0.64 K/mm3 (0.16-1.47); MONOCYTES PERCENT AUTO 7 % (4-13); Mean Corpuscular HGB 28.9 pg (26.0-34.0); Mean Corpuscular HGB Conc 32.9 g/dL (31.5-36.5); Mean Corpuscular Volume 88 fL (80-100); Mean Platelet Volume 9.8 fL (9.1-12.4); NEUTROPHILS ABSOLUTE AUTO 7.43 K/mm3 (1.96-9.15); NEUTROPHILS PERCENT AUTO 79 % (41-73); Platelet Count 246 K/mm3 (150-400); RDW Coefficient Variation 12.8 % (11.7-14.2); RDW Standard Deviation 40.5 fL (35.1-46.3); Red Blood Cell Count 4.85 M/mm3 (4.30-5.90); White Blood Cell Count 9.37 K/mm3 (4.00-11.30)
[2021-06-19 05:06] LABS: Bun/Creatinine Ratio 33.1 (12.0-20.0); Calcium, Blood 8.9 mg/dL (8.5-10.1); Creatinine, Blood 1.3 mg/dL (0.60-1.20); Potassium, Blood 4.8 mmol/L (3.5-5.5)
--- NOTE | 2021-06-19 05:25 | NUR ---
SHIFT SUMMARY NO ACUTE CHANGES THIS SHIFT. PT A&OX4, PLEASANT. SP02>90% ON VENTI MASK, 80L, 100% FI02. PT HAS HARSH COUGH, SPUTUM SAMPLE SENT TO LAB. PT BECAME SOB, HARD TIME TALKING. CALLED RT FOR BREATHING TX. TX RELIEVED SYMPTOMS. TELEMETRY SHOWS NSR, HR 80'S. PT C/O OF GENERALIZED PAIN T/O SHIFT. MEDICATED PER EMAR. PT USED URINAL TO VOID. BED SLOAN FOR ONE LARGE BM. SON IN ROOM ALL NIGHT REPOSITIONING AND HELPING PT WITH ADLS. ABX INFUSED THIS SHIFT. CALL LIGHT IN REACH
--- NOTE | 2021-06-19 14:58 | NUR ---
Pt continues having breakthrough pain and SOB with current regimen. Discussed with Cheyanne, pt's bedside RN and she also noted pt's pain isn't completely managed at this point. He is taking 2 tabs of oxy/APAP 10/325mg PO every 4 hours, and MS Contin 30mg po twice daily. Discussed with Dr. Cooper, and she agrees, pt is now needing an increase in pain medication. She will adjust these today. Anxiety appears to be well controlled at this time. and sons spend majority of visiting hours here with pt. Will continue with symptom management.
--- NOTE | 2021-06-19 18:08 | NUR ---
NO ACUTE EVENTS T/O SHIFT. PT'S FAMILY MEMBERS AT BEDSIDE ALL DAY HELPING HIM WITH ALMOST ALL CARE. PT MEDICATED FOR PAIN/AIR HUNGER PER EMAR. PT C/O 5 PAIN T/O MOST OF THE DAY, DR PERRY CONTACTED FOR ORDERS. PT HAS BEEN PLEASANT, ALERT AND COOPERATIVE. DR GURROLA IN TO SEE PT THIS AFTERNOON AND DECREASED O2% FROM 100% TO 85%. PT HAS TOLERATED THIS WELL, WITH SPO2 RANGING FROM 88-93%. WILL CONTINUE TO MONITOR AND REPORT OFF TO NOC SHIFT RN.
[2021-06-20 04:29] LABS: BASOPHILS ABSOLUTE AUTO 0.02 K/mm3 (0.00-0.23); BASOPHILS PERCENT AUTO 0 % (0-2); EOSINOPHILS ABSOLUTE AUTO 0.25 K/mm3 (0.00-0.68); EOSINOPHILS PERCENT AUTO 3 % (0-6); Hematocrit 40.5 % (37.0-53.0); Hemoglobin 13.4 g/dL (13.5-17.5); IMMATURE GRAN ABSOLUTE AUTO 0.18 K/mm3 (0.00-0.10); IMMATURE GRAN PERCENT AUTO 2 % (0-1); LYMPHOCYTES ABSOLUTE AUTO 0.74 K/mm3 (0.84-5.20); LYMPHOCYTES PERCENT AUTO 8 % (21-46); MONOCYTES ABSOLUTE AUTO 0.62 K/mm3 (0.16-1.47); MONOCYTES PERCENT AUTO 7 % (4-13); Mean Corpuscular HGB 28.8 pg (26.0-34.0); Mean Corpuscular HGB Conc 33.1 g/dL (31.5-36.5); Mean Corpuscular Volume 87 fL (80-100); NEUTROPHILS PERCENT AUTO 81 % (41-73); Platelet Count 244 K/mm3 (150-400); RDW Coefficient Variation 12.9 % (11.7-14.2); RDW Standard Deviation 40.8 fL (35.1-46.3); Red Blood Cell Count 4.65 M/mm3 (4.30-5.90); White Blood Cell Count 9.51 K/mm3 (4.00-11.30)
--- NOTE | 2021-06-20 04:49 | NUR ---
END OF SHIFT SUMMARY: PATIENT HAS BEEN UNCHANGED FROM PREVIOUS SHIFT, WITH THE EXCEPTION OF FIO2 ON VENTI MASK IS NOW 95% WITH 80L. PATIENT HAS BEEN REPOSITIONED ATLEAST HOURLY, BY THIS RN, PCT, AND FAMILY. PATIENT DENIES CHEST PAIN, OR SOB. PATIENT STILL HAVING A COUGH, NONPRODUCTIVE, SUCTION HAS BEEN SET UP IN THE ROOM. PATIENT HAS BEEN SPO2 OF 88%, DID DESATURATE ONCE AFTER USING THE BEDPAN, AND HAD A LONGER PERIOD OF RECOVERY, THEN PREVIOUSLY. PATIENT RECIEVED PAIN MEDICATION AND ANTI ANXIETY MEDICATION Q4. FAMILY AT BEDSIDE HAVE BEEN EDUCATED ON SITUATION, ACUTE ON CHRONIC ILLNESS. TRAJECTORY, AND AIRMANAGMENT. WILL CONTINUE TO MONITOR PATIENT.
[2021-06-20 04:55] LABS: Bun/Creatinine Ratio 34.7 (12.0-20.0); Creatinine, Blood 1.21 mg/dL (0.60-1.20); Potassium, Blood 4.7 mmol/L (3.5-5.5)
--- NOTE | 2021-06-20 13:21 | NUR ---
Spoke with Dr Cooper and discussed case. Comfort care was discussed with Pt and family. Pt and family may benefit from PC F/U for further discussion and to answer further questions. Pt resting in bed with lots of family at bedside. Primary RN Cheyanne at bedside offering Ativan. Offered supportive listening and answered questions regarding comfort care philosophy, medications and potential S/S Pt may experience. Pt reports plan to elect comfort care but would like to wait until later today or possibly tomorrow before implementing. Continued therapeutic listening. Pt and family expresses appreciation and reports no other concerns at this time. Palliative Care will remain available.
--- NOTE | 2021-06-20 18:25 | NUR ---
PT W FAMILY AT BEDSIDE ALL T/O THE DAY. DR PERRY AND PALIATIVE CARE RN LIO IN TO DISCUSS COMFORT CARE. PT AND FAMILY SEEM TO ACCEPT THAT THE PT IS AT THE END OF LIFE, BUT PT STATES HE IS NOT READY FOR COMFORT CARE TODAY. PT MEDICATED FOR PAIN, SEE EMAR. NO ACUTE EVENTS. WILL CONTINUE TO MONITOR AND GIVE REPORT TO ONCOMING RN.
--- NOTE | 2021-06-21 06:12 | NUR ---
SHIFT SUMMARY PT RESTED WELL THROUGH THE NIGHT. ALERT AND ORIENTED, ABLE TO MAKE NEEDS KNOWN. COOPERATIVE WITH PLAN OF CARE. SATS >93% ON AIRVO WITH VENTI MASK 80L/95%. TELE READS NSR - RATE 87. URINATES TO URINAL - FAMILY AT BEDSIDE, HELPS WIHT ALL CARE. NO BM. C/O PAIN IN BACK - SEE EMAR. PLANS ARE TO DISCUSS PLAN OF CARE REGARDING COMFORT CARE. VSS. CALL LIGHT WITHIN REACH, BED IN LOWEST POSITION. WILL CONTINUE TO MONITOR.
[2021-06-21 08:23] LABS: BASOPHILS ABSOLUTE AUTO 0.01 K/mm3 (0.00-0.23); BASOPHILS PERCENT AUTO 0 % (0-2); EOSINOPHILS ABSOLUTE AUTO 0.55 K/mm3 (0.00-0.68); EOSINOPHILS PERCENT AUTO 5 % (0-6); Hematocrit 40.4 % (37.0-53.0); Hemoglobin 13.4 g/dL (13.5-17.5); IMMATURE GRAN ABSOLUTE AUTO 0.16 K/mm3 (0.00-0.10); IMMATURE GRAN PERCENT AUTO 2 % (0-1); LYMPHOCYTES ABSOLUTE AUTO 0.61 K/mm3 (0.84-5.20); LYMPHOCYTES PERCENT AUTO 6 % (21-46); MONOCYTES ABSOLUTE AUTO 0.68 K/mm3 (0.16-1.47); MONOCYTES PERCENT AUTO 6 % (4-13); Mean Corpuscular HGB Conc 33.2 g/dL (31.5-36.5); Mean Corpuscular Volume 87 fL (80-100); Mean Platelet Volume 9.8 fL (9.1-12.4); NEUTROPHILS ABSOLUTE AUTO 8.78 K/mm3 (1.96-9.15); NEUTROPHILS PERCENT AUTO 81 % (41-73); Platelet Count 245 K/mm3 (150-400); RDW Standard Deviation 40.6 fL (35.1-46.3); Red Blood Cell Count 4.62 M/mm3 (4.30-5.90); White Blood Cell Count 10.79 K/mm3 (4.00-11.30)
[2021-06-21 08:40] LABS: Vancomycin, Trough 19.7 ug/mL (5.0-10.0)
[2021-06-21 08:42] LABS: Bun/Creatinine Ratio 32.3 (12.0-20.0); Calcium, Blood 8.6 mg/dL (8.5-10.1); Creatinine, Blood 1.3 mg/dL (0.60-1.20); Potassium, Blood 4.4 mmol/L (3.5-5.5)
--- NOTE | 2021-06-21 08:45 | NUR ---
CARE ASSUMPTION PATIENT IS ALERT AND ORIENTED X4. NEURO IS INTACT. PERRLA. LUNG SOUNDS CLEAR/COARSE AND DIM IN LOWER LOBES. SPO2 >90% ON VENTI HEATED/HIGHFLOW MASK AT 80L 95%. PATIENT BECOMES SHORT OF BREATH WITH EXERTION, AND IS USING ACCESORY MUSLES. VSS. TELE SR/ST. PATIENT REPORTS NO CHEST PAIN/PRESSURE. STRONG PULSES RADIAL AND PEDIS. PATIENT REPORTS PAIN IN SHOULDERS AND RIBS. PATIENT RECEIVED PAIN MED PER EMAR. PATIENT HAS A STAGE 1 PRESSURE SORE TO BOTTOM. ENCOURAGED REPOSITION AND THIS RN WILL GET PICTURES FOR THE CHART NEXT TIME WE REPOSITION. SEE SHIFT ASSESSMENT FOR FULL DETAILS. FAMILY IS AT BEDSIDE AND PERFORMS MAJORITY OF THE PATIENT ADLS, BUT THIS RN AND THE PATIENT CAMP GUARD OFFER TO HELP AND NOTIFY US IF THEY NEED ANY ASSISTANCE. CALL LIGHT WITHIN REACH. WILL CONTINUE TO MONITOR AND PROVIDE CARE.
--- NOTE | 2021-06-21 10:05 | NUR ---
Case Conference Note Spoke with Primary RN Catherine this AM. Pt remains about the same. Several visitors in to see Pt this AM. Pt to possibly move forward with comfort care decision today. Palliative Care will remain available.
--- NOTE | 2021-06-21 16:25 | NUR ---
1615, FAMILY MEMBERS OF PT DISCUSSED WITH THIS RN THAT THEY "DID NOT WANT THAT CHEPE DISCUSSING THINGS AROUND MY FATHER IN[place]." WHEN ASKED WHO THEY WERE TALKING ABOUT, THE FAMILY MEMBER STATED "THE CHPEE FROM PALLIATIVE CARE." VERIFIED WITH FAMILY MEMBERS IF LIO FROM PALLIATIVE, FAMILY ANSWERED "YES." WHEN ASKED WHAT WAS GOING ON, FAMILY STATED "THE PALLIATIVE CARE KEEPS ASKING IF HE WANTS ROXANOL EVERY HOUR. HE SAID HE FEELS LIKE THAT CHEPE IS TELLING HIM THAT IT IS TIME TIME ." FAMILY MEMBERS THEN STATED THAT THEY ARE WANTING TO TALK TO PATIENT ADVOCATE BUT WERE TOLD THE ADVOCATES ARE CURRENTLY NOT WORKING. THE FAMILY THEN EXPRESSED THAT "THEY ARE WANTING TO GET MY FATHER [place] RECORDS SENT TO [facility] FOR A SECOND OPINION BUT NO ONE RETURNED OUR CALL."FAMILY MEMBERS STATED "THE DOCTORS THINK THAT HE IS NOT GETTING ANY BETTER, BUT HE IS NOT GETTING ANY WORSE EITHER." THIS RN STATED THAT THE PT AND FAMILY CAN DISCUSS THINGS WITH THE CHARGE NURSE OR NURSING BRAND [employer] PROMOTIONAL SALES SINCE PATIENT ADVOCATE WAS UNAVAILABLE. FAMILY SAID THAT THEY "WE DON'T WANT TO A THRON IN SOMEONE'S SIDE, BUT WE WOULD LIKE A SECOND OPINION." THIS RN DISCUSSED THIS INCIDENT WITH THE NURSE OF THE PT AND THE CHARGE NURSE.
--- NOTE | 2021-06-21 16:34 | NUR ---
UPDATE PATIENT FAMILY MEMBERS CAME OUT OF THE ROOM AND TOLD AMY SALAZAR, THAT THEY DIDN'T WANT US DISCUSSING CARE WITH THE PATIENT ANYMORE AND WANTED A PATIENT ADVOCATE. MARIE INFORMED THIS RN, ONCE I WAS INFORMED THE FAMILY WAS TALKING WITH ANOTHER RN ON THE FLOOR, JOSIAH. THIS RN ASKED ISAC WHAT WAS SAID AND HE SUMMARIZED WHAT THE FAMILY MEMBERS SAID STATING THAT THEY SAID THIS: THAT LIO FROM PALLATIVE CARE HAS COME BY EVERY HOUR TODAY, TO TALK TO THEM. THAT THEY NO LONGER WANT LIO COMING IN AND TALKING TO THEM. THEY DID NOT INFORM THIS RN OF THAT WHEN I WENT IN AFTER THEY HAD THIS CONVERSATION WITH ALEJANDRO HOWARD . LIO RN, FROM PALLIATIVE CARE CAME BY THIS MORNING AND ASKED FOR AN UPDATE AND THIS RN PROVIDED IT, AND THIS RN HASN'T SEEN LIO SINCE THIS AM. THE FAMILY MEMBERS THAT WERE COMPLAINING OF THIS DID NOT ARRIVE TO THE PATIENT ROOM UNTIL APPROX 1400. THE PATIENT SON CAME OUT TO TALK WITH THIS RN, STATING HE HAD CALLED [facility] WANTING A SECOND OPINION WITH A PULMONLIGIST AT [facility] AND THAT THEY COULDN'T DO THIS SINCE THE PATIENT IS IN THE [facility] THEY WOULD HAVE TO TALK WITH THE HOSPITLIST, SO THEY WOULD LIKE TO GET THE REFERAL PROCESS STARTED. THIS RN CALLED MD MARIN AND NOTIFED HIM OF THE SITUATION AND HE STATED THAT HE WOULD DISCUSS THIS WITH THE PATIENT AND FAMILY TOMORROW MORNING. THIS RN LET THE FAMILY KNOW THIS. THE PATIENT IS ABLE TO COMMUNICATE AND MAKE HIS NEEDS KNOWN. THE PATIENT DOES BECOME SHORT OF BREATH WITH EXERTION, AND CAN ONLY SAY 4-6 WORDS AT A TIME WITHOUT BECOMING SHORT OF BREATH. THIS RN HAS ALLOWED FOR MORE VISITORS IN THE ROOM, AND THEY HAVE HAD UP TO 6 AT A TIME. THIS RN INFORMED THEM OF THE VISITOR POLICY OF 2 VISITORS AT A TIME, AND STATED HOW IT IS DIFFICULT TO PERFORM CARE WITH THAT MANY PEOPLE IN THE ROOM AT ONCE.
--- NOTE | 2021-06-21 17:17 | NUR ---
SPOKE TO LIO ALLEN, UPDATE THIS RN INFORMED LIO ALLEN ABOUT THE SITUATION WITH THE FAMILY MEMBERS. LIO ALLEN DID NOT GO INTO THE ROOM THIS AM WHEN HE SPOKE TO ME. LIO ALLEN HASN'T BEEN IN THE ROOM TO SEE THE PATIENT TODAY. LIO SAW THE PATIENT YESTERDAY AFTER MD MERIDA ASKED HIM TO VISIT THE PATIENT AND ANSWER THEIR QUESTIONS ABOUT COMFORT CARE.
--- NOTE | 2021-06-21 18:23 | NUR ---
SHIFT SUMMARY NO ACUTE CHANGES THIS SHIFT. NEURO REMAINS INTACT. VSS. SEE PREVIOUS NOTES. PATIENT REPORTS PAIN, GENERALIZED AND HAS RECIEVED PAIN MEDICATION PER EMAR. CALL LIGHT WITHIN REACH. FAMILY MEMEBERS AT BEDSIDE. WILL CONTINUE TO MONITOR AND PROVIDE CARE UNTIL HAND OFF WITH NEXT SHIFT.
--- NOTE | 2021-06-21 19:24 | NUR ---
VISITOR POLICY THIS RN INFORMED FAMILY OF THE VISITOR ODETTE MULTIPLE TIMES THROUGHOUT THE DAY, AND FAMILY CONTINUED TO HAVE MORE THAN TWO VISITORS IN THE ROOM. THIS RN NOTIFED FAMILY AT 1915 THAT THE VISITOR HOURS WERE OVER, AND CAROLINA ALLEN WAS THERE A WITNESS. THE SON STATED THAT THE WAS ABLE TO STAY LAST NIGHT WITH THE FAMILY, AND THIS RN STATED THAT THE POLICY IS [id number]. THE SON ASKED TO SPEAK TO THE CHIEF UNIT FORESTER. THIS RN AND CAROLINA ALLEN NOTIFED CHIEF UNIT FORESTER AND THEY WILL SPEAK TO THE FAMILY AND DECIDE MOVING FORWARD.
[2021-06-22 04:40] LABS: Albumin, Blood 2.7 g/dL (3.4-5.0); Albumin/Globulin Ratio 0.8 (0.8-1.8); Bilirubin, Total 0.6 mg/dL (0.1-1.0); Bun/Creatinine Ratio 33.6 (12.0-20.0); Calcium, Blood 8.8 mg/dL (8.5-10.1); Creatinine, Blood 1.25 mg/dL (0.60-1.20); Globulin, Blood 3.4 g/dL (2.2-4.0); Potassium, Blood 5.1 mmol/L (3.5-5.5); Total Protein, Blood 6.1 g/dL (6.4-8.2)
--- NOTE | 2021-06-22 04:53 | NUR ---
SUMMARY NO ACUTE CHANGES NOTED OVER NIGHT. PT IS CURRENTLY ON 80 L 75% FIO2 VIA VENTI MASK. PAIN & ANXIETY MEDS GIVEN PRN PER EMAR. PT IS REFUSING TO BE REPOSITIONED Q2 HRS, PT & FAMILY EDUCATED ON REPOSITIONING AND PAIN MEDICATION. PT'S SON HAS REMAINED AT THE BEDSIDE & HAS BEEN ASSISTING WITH CARE. CALL LIGHT IN REACH, [facility]
--- NOTE | 2021-06-22 17:16 | NUR ---
SHIFT SUMMARY PT REMAINS ALERT AND ORIENTED. BP STABLE. HR NSR TO ST LOW 100'S. O2 SATS HAVE REMAINED ABOVE 90% ON HEATED HUMID HIGH FLOW THROUGH VENTI MASK AT 80L AND 70% FIO2. PT DOES NOT TOLERATE MUCH ACTIVITY DUE TO SOB. PT REPOSITIONED Q2H. FAMILY AT BEDSIDE ALL SHIFT HELPING PROVIDE CARE TO PT. PT ABLE TO VOID WITH URINAL. WILL CONTINUE TO MONITOR AND REPORT TO ONCOMING ALEJANDRO
--- NOTE | 2021-06-22 22:18 | NUR ---
Assumed care of pt at 1900. A/Ox4, very lethargic and painful (generalized). Normal strength and pulses t/o. Maintains low 90's on venti mask 80L/65%, tachypneic and ROBLEDO. LS clear upper and ins/exp wheezes RML and RLL and dim LLL. Sinus tach on tele 90-110's. Trace edema BLE. Coccyx breakdown noted with redness, cleaned and new mepilex applied. Family at bedside. IV in R forearm is red/leaking. Working to obtain new IV site. PRN's being requested q4 and administered q4. Will update as changes occur.
[2021-06-23 08:14] LABS: BASOPHILS ABSOLUTE AUTO 0.01 K/mm3 (0.00-0.23); BASOPHILS PERCENT AUTO 0 % (0-2); EOSINOPHILS ABSOLUTE AUTO 0.66 K/mm3 (0.00-0.68); EOSINOPHILS PERCENT AUTO 6 % (0-6); Hematocrit 41.6 % (37.0-53.0); Hemoglobin 14.2 g/dL (13.5-17.5); IMMATURE GRAN ABSOLUTE AUTO 0.13 K/mm3 (0.00-0.10); IMMATURE GRAN PERCENT AUTO 1 % (0-1); LYMPHOCYTES ABSOLUTE AUTO 0.66 K/mm3 (0.84-5.20); LYMPHOCYTES PERCENT AUTO 6 % (21-46); MONOCYTES ABSOLUTE AUTO 0.96 K/mm3 (0.16-1.47); MONOCYTES PERCENT AUTO 8 % (4-13); Mean Corpuscular HGB Conc 34.1 g/dL (31.5-36.5); Mean Corpuscular Volume 85 fL (80-100); NEUTROPHILS ABSOLUTE AUTO 9.26 K/mm3 (1.96-9.15); NEUTROPHILS PERCENT AUTO 79 % (41-73); RDW Coefficient Variation 12.9 % (11.7-14.2); RDW Standard Deviation 39.3 fL (35.1-46.3); Red Blood Cell Count 4.89 M/mm3 (4.30-5.90); White Blood Cell Count 11.68 K/mm3 (4.00-11.30)
[2021-06-23 08:49] LABS: Platelet Count 264 K/mm3 (150-400)
[2021-06-23 10:06] LABS: Alanine Aminotransfer (ALT/SGP 88 U/L (12-78); Albumin, Blood 2.7 g/dL (3.4-5.0); Albumin/Globulin Ratio 0.8 (0.8-1.8); Alk Phos 100 U/L (50-136); Anion Gap 5 mmol/L (6-16); Aspartate Aminotrans (AST/SGOT 29 U/L (12-37); Bilirubin, Total 0.7 mg/dL (0.1-1.0); Blood Urea Nitrogen 40 mg/dL (8-24); CO2, Blood 33 mmol/L (21-32); Chloride, Blood 96 mmol/L (98-108); Creatinine, Blood 1.25 mg/dL (0.60-1.20); Globulin, Blood 3.4 g/dL (2.2-4.0); Glomerular Filtration Rate 56 (60-); Glucose, Blood 110 mg/dL (70-99); Potassium, Blood 4.3 mmol/L (3.5-5.5); Sodium, Blood 134 mmol/L (136-145); Total Protein, Blood 6.1 g/dL (6.4-8.2)
--- NOTE | 2021-06-23 16:48 | NUR ---
SHIFT SUMMARY PT REMAINS ALERT AND ORIENTED. BP STABLE. HR NSR IN THE 90'S. O2 SATS HAVE REMAINED ABOVE 90% ON 80L 60% FIO2 VIA VENTI MASK. PT TITRATED DOWN FROM 70% FIO2 THIS AM. PT DESATURATES WITH ACTIVITY, BUT RECOVERS QUICKLY. PT COMPLAINS OF PAIN THROUGHOUT SHIFT AND MEDICATED PER EMAR. PT ABLE TO VOID USING URINAL. PT REPOSITIONED Q2H AND NEEDED. FAMILY AT BEDSIDE ALL SHIFT. WILL CONITNUE TO MONITOR AND REPORT TO ONCOMING RN. CALL LIGHT IN REACH.
--- NOTE | 2021-06-23 21:56 | NUR ---
Assumed care of pt at 1900. A/Ox4 but noted periods of confusion this shift. Continues to have pain requiring scheduled and PRN's around the clock. Maintaining 89-90% although periods as high as 95% on venti mask 80L/60%. LS clear on top and crackles at bases. Breathing continues to be shallow, tachypneic with accessory muscle use. Occasional nonproductive cough treated with PRN. SR-ST on tele 90-115. Family repositions regularly. Oral thrush already looking like it's clearing up. Patient has had very broken up sleep, considering the periods of confusion - this RN is going to limit times in room to allow patient to get rest. Patient & family makes needs known and call light within reach. Will update as changes occur.
[2021-06-24 04:14] LABS: Vancomycin, Random 13.1 ug/mL
--- NOTE | 2021-06-24 17:02 | NUR ---
SHIFT SUMMARY PT REMAINS ALERT AND ORIENTED. O2 SATS HAVE REMAINED ABOVE 90% ON 80L AND 70% FIO2 VIA VENTI MASK. PT GETS SOB WITH ACITIVY, BUT RECOVERS QUICKLY. BP STABLE. HR NSR TO SINUS TACH. PT COMPLAINS OF PAIN THROUGHOUT SHIFT AND MEDICATED PER EMAR. PT ABLE TO STAND THIS SHIFT TO VOID. PT HAD LARGE BM THIS SHIFT. REPOSITIONED Q2H AND NEEDED. FAMIY AT BEDSIDE ALL SHIFT. WILL CONTINUE TO MONITOR AND REPORT TO ONCOMING RN
--- NOTE | 2021-06-25 07:15 | NUR ---
NO ACUTE EVENTS OVERNIGHT. PT REMAINS ON AIRVO DELIVERY VIA VENTI MASK, NO HEATED HUMIDITY. PER DISCUSSION WITH THE PATIENT'S SON AT BEDSIDE, THE HIGH FLOW NASAL CANNULA WAS REMOVED EARLIER IN HIS CARE BECAUSE THE PATIENT WAS NOT TOLERATING IT WELL. I SHARED WITH THE PATIENT AND HIS SON THAT THE BENEFIT OF THE HEATED HIGH FLOW NASAL CANNULA (HFNC) IS NOT ONLY ITS CAPACITY TO DELIVER A HIGHER PERCENTAGE OF OXYGEN BUT ALSO AN INCREASED FLOW/PRESSURE OF OXYGEN TO HELP WITH BETTER AERATION OF THE LUNGS. THIS WAS REVISITED WITH THE PT AND HIS SON WHEN THE RESPIRATORY THERAPIST ARRIVED AT SHIFT CHANGE THIS MORNING. CONSIDERATION IS BEING GIVEN TO SWITCHING BACK TO THE HFNC AND TO GAUGE PT'S TOLERANCE. PT'S BREATHS ARE SHALLOW, WITH A SHORT INSPIRATION INTERVAL. HE IS TACHYPNEIC AT REST AND DYSPNEIC WITH MINIMAL EXERTION. HE DOES HAVE A CONGESTED COUGH THAT IS NONPRODUCTIVE AT THIS TIME. INSTRUCTED PT ON USE OF PILLOW A SPLINT TO THE CHEST WHEN COUGHING TO IMPROVE HIS COUGHING EFFORTS. PT REMAINS IN CONSTANT PAIN, WHICH INCLUDES CHRONIC PAIN OF THE BONES AND JOINTS AND SOME PLEURITIC PAIN WITH COUGHING. SCHEDULED AND PRN PO NARCOTIC ANALGESICS ADMINISTERED ORDERED. PT DOES REPORT FEELING SIGNIFICANT ANXIETY ABOUT HIS PAIN GETTING OUT OF CONTROL AND IS TAKING HIS PRN MEDS EVERY 4 HOURS. PT DOES REPORT SOME RELIEF WITH THIS REGIMEN. PT HAD BEEN TAKING PRN IV ATIVAN APPROXIMATELY EVERY 4 HOURS FOR A FEW DAYS. HE REPORTS THAT THE MEDICATION HELPS TO RELIEVE HIS ANXIETY FOR A SHORT PERIOD OF TIME. CONSIDERING THE FREQUENCY OF THE DOSES, THE DECISION WAS MADE TO CHANGE THE ROUTE FROM IV TO PO LAST EVENING. THIS MORNING, THE PATIENT STATES THAT HE DOES BELIEVE THAT HE FEELS LESS ANXIOUS. HIS SON WHO HAS BEEN AT BEDSIDE EVERY NIGHT ALSO ENDORSES THAT THE PT WAS ABLE TO GET MORE RESTFUL PERIODS THROUGH THE NIGHT COMPARED TO THE PREVIOUS TWO NIGHTS.
--- NOTE | 2021-06-25 09:42 | NUR ---
Bedside report was received this morning from ALEJANDRO Peralta. The pt and his son were in the room at the time, discussing his pain medications. The pt was given medication for anxiety soon afterwards, at his request. He is on the high flow therapy oxygen, 65 L/min and 65% FiO2 at time of bedside report, assessment and throughout the morning so far. The mask is removed to the side briefly for medication administration and for eating. Cristina arrived later to assist with pt care. The son and are both active in the pt's care, including meal assistance, toileting (use of urinal in the bed), oral care, and giving the pt drinks of liquid. Pt is anxious about pain control and other aspects of his care. He is frequently also asking questions about his care. Appears to be good supportive environment with pleasant conversation in between all visitors and the patient. Pt states that he would like to use the bedside commode today when he needs to have a BM, and possibly also to use the urinal later. Suggested that he also might consider a puree diet if he would like, to lessen the work required when eating. He is not sure about that idea. States that his pain control is sufficient at 4/10, but worsened to 8/10 after eating in his mouth. Nystatin swish and swallow administered as ordered.
--- NOTE | 2021-06-25 15:16 | NUR ---
Spiritual care visit conducted. Patient is lying in bed and his spouse Cristina is present in the rm. Pt and Cristina fill me in on pt's medical battles and about their family dynamics. Patient then talks at length about his spiritual journey and his spiritual distress centered around his feelings of not doing enough for God and for the mistakes he has made. I explore his Yarsanism beliefs and what he believes is the source of the feelings of guilt and shame. Pt also discusses his thoughts on and dying and that he does have a deep peace about going to [facility]. I hear confession, and provide therapeutic listening, pastoral family and marriage counsellor, recitation of scripture and prayer. Patient responds well and show signs of catharsis, an increased peace and a reduction of shame. I will continue to remain available to patient and family.
--- NOTE | 2021-06-25 16:15 | NUR ---
The pt has been surrounded by family and friends coming and going throughout the day. He was visited by the senior counsel today. Weaning of oxygen levels being managed by RT Tiffany. Pt is tolerating Airvo this afternoon, spo2 steady in mid-90s range. Vital signs are stable. PT's Cristina states that Dr. Núñez called her today, and told her that he is keeping a close eye remotely on the pt's chart. He encouraged her "not to give up, and not to do anything drastic, that he is certain that the pt's current problems are not being caused by the cancer", the stated to me. Pt continues to be very weak, being turned in bed and repositioned with staff assistance only. Appetite has been fair. Pain control and anxiety management are also adequate, he says.
--- NOTE | 2021-06-25 17:06 | NUR ---
2 person moderate assistance to get up to bedside commode. Pt was rather weak. Gait belt and FWW in use for the transfer. Able to stand and pivot to the bedside commode to void and have BM. spo2 dropped to 85% during the transfer, and took several minutes to recover to 92%. Before the transfer back to bed, FiO2 increased to 100% , and kept on for 2 minutes during the activity of standing, taking a couple of steps and transferring back to the bed. He was dyspneic again with the transfer, but tolerated it better with increased oxgyen supply. Son Sagar at the bedside, and Cristina returned to room after pt was back in bed.
--- NOTE | 2021-06-26 06:24 | NUR ---
No acute events overnight. Pt remains on Heated High Flow Nasal Cannula, currently on 40 lpm and 45% FiO2, down from 50% FiO2 when I assumed care of the patient at 19:00. Pt's breathing pattern continues to be shallow with a short inspiratory interval, tachypneic at rest and dyspneic with minimal exertion. Scheduled and PRN narcotic pain medications administered as ordered. Pt continues to request PRN meds every 4 hours, and reports his pain to be 5-7/10. 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 A change was made to the patient's PRN pain medication from Percocet (10-325 mg) to q4 hour oxycodone (10 mg) and q6 hour acetaminophen (325 - 650mg). Pt is requesting that this change be undone and that the Percocet be made available again. I will pass this request on to the oncoming nurse for the attending physician to review. Pt did experience longer periods of restful sleep overnight compared to the previous night. His mentation remains the same, with moments of confusion related to place and situation. He is easily re-oriented to his surroundings and reason for hospitalization. He continues to express anxiety about his breathing and concerns that his pain will get out of control. PRN Ativan administered as ordered to help reduce the anxiety. Also, his son was at the bedside through the night again, providing emotional support and reassurance as well as assisting the pt with PO intake, use of the urinal, skin care, and minor repositioning. Additional care provided by staff as needed and necessary.
--- NOTE | 2021-06-26 12:22 | NUR ---
Dr. Haq here to see the patient. New orders recieved.
--- NOTE | 2021-06-26 12:31 | NUR ---
Pt is anxious about nearly every subject of conversation. He is presently at 40 l/min and 40% Fio2 on the High flow therapy, nasal cannula delivery. SPO2 dropped to 83-85% while taking his pills during lunch time. His respirations are shallow, with use of shoulder muscles and occasional dry cough. SPO2 is recovered to 88% at this time. He is somewhat forgetful, asking, "what are we doing now?" is at the bedside, very helpful and encouraging with patient care and his anxiety component. Encouraged the patient to get up to the chair, in about half an hour after the administration of the pain and anxiety medications. Ex[plained that it is important for his pulmonary toilet as well as prevention of skin breakdown from constant bedrest.
--- NOTE | 2021-06-26 12:39 | NUR ---
increased FIO2 to 45% while he is eating.
--- NOTE | 2021-06-26 15:37 | NUR ---
Pt sat up in chair for about an hour, then used the bedside commode, and was helped back into bed. DUring activity, his heart rate is 122-133 bpm, and his respiratory rate is 26-30/min, labored, but spo2 90-98% with 100% O2 boost for 2 minutes just before and at the beginning of the activity. After the activity, his heart rate has recovered to 105 bpm, spo2 93% on 40 l/min and 40% Fio2.
--- NOTE | 2021-06-26 18:11 | NUR ---
Sitting up in bed, having finished eating dinner. High flow oxygen at 30 l/min and 40 % FIO2. SPO2 92%, no dyspnea noted at this time; speaking in full sentences. Heart rate 106 bpm, sinus tachycardia. is at the bedside.
--- NOTE | 2021-06-26 23:21 | NUR ---
Assumed care of pt at 1900. A/Ox4. Sitting in bed with son at bedside. Pt reports pain in ribcage that is chronic in nature but exacerbated by coughing. Maintaining 91-95% on Airvo 40L/30%, LS rales on top and dim at bases. Pt reports cough, with small production that pt swallows. ST on tele. VSS. Pt reports hyperactive bowels with diarrhea noted. Thrush improving. Redness on perianal, buttock and axillae. Will update as changes occur.
[2021-06-27 05:54] LABS: BASOPHILS ABSOLUTE AUTO 0.01 K/mm3 (0.00-0.23); BASOPHILS PERCENT AUTO 0 % (0-2); EOSINOPHILS ABSOLUTE AUTO 0.03 K/mm3 (0.00-0.68); EOSINOPHILS PERCENT AUTO 0 % (0-6); Hemoglobin 12.7 g/dL (13.5-17.5); IMMATURE GRAN ABSOLUTE AUTO 0.11 K/mm3 (0.00-0.10); IMMATURE GRAN PERCENT AUTO 1 % (0-1); LYMPHOCYTES ABSOLUTE AUTO 0.28 K/mm3 (0.84-5.20); LYMPHOCYTES PERCENT AUTO 3 % (21-46); MONOCYTES ABSOLUTE AUTO 0.33 K/mm3 (0.16-1.47); MONOCYTES PERCENT AUTO 3 % (4-13); Mean Corpuscular HGB 29.1 pg (26.0-34.0); Mean Corpuscular HGB Conc 34.3 g/dL (31.5-36.5); Mean Corpuscular Volume 85 fL (80-100); Mean Platelet Volume 9.4 fL (9.1-12.4); NEUTROPHILS ABSOLUTE AUTO 9.38 K/mm3 (1.96-9.15); NEUTROPHILS PERCENT AUTO 92 % (41-73); Platelet Count 258 K/mm3 (150-400); RDW Coefficient Variation 12.9 % (11.7-14.2); RDW Standard Deviation 39.7 fL (35.1-46.3); Red Blood Cell Count 4.36 M/mm3 (4.30-5.90); White Blood Cell Count 10.14 K/mm3 (4.00-11.30)
[2021-06-27 06:18] LABS: Alanine Aminotransfer (ALT/SGP 60 U/L (12-78); Albumin, Blood 2.7 g/dL (3.4-5.0); Albumin/Globulin Ratio 0.8 (0.8-1.8); Alk Phos 77 U/L (50-136); Anion Gap 2 mmol/L (6-16); Aspartate Aminotrans (AST/SGOT 21 U/L (12-37); Bilirubin, Total 0.5 mg/dL (0.1-1.0); Blood Urea Nitrogen 42 mg/dL (8-24); Bun/Creatinine Ratio 35.6 (12.0-20.0); CO2, Blood 33 mmol/L (21-32); Calcium, Blood 8.7 mg/dL (8.5-10.1); Chloride, Blood 99 mmol/L (98-108); Creatinine, Blood 1.18 mg/dL (0.60-1.20); Globulin, Blood 3.2 g/dL (2.2-4.0); Glomerular Filtration Rate >60 (60-); Glucose, Blood 133 mg/dL (70-99); Potassium, Blood 4.5 mmol/L (3.5-5.5); Sodium, Blood 134 mmol/L (136-145); Total Protein, Blood 5.9 g/dL (6.4-8.2)
--- NOTE | 2021-06-27 07:51 | NUR ---
Assisted pt from bed to recliner chair at the bedside . States that he feels like he can't get air. I asked if it is the pain in his chest which is keeping him from breathing deeply or coughing, and he says that he doesn't know. Shallow, quick breathing noted, and occasional dry cough. Son and are at the bedside.
--- NOTE | 2021-06-27 18:18 | NUR ---
The pt was up in the chair today for most of the day, from breakfast until mid afternoon. He is tolerating the activity fairly well. His muscle strength in his arms and legs is good, but he gets short of breath and anxious with activity. He benefited from the activity and shows motivation to increase his activity level. His goal is to be able to go home. Lung sounds are improved overall from three days ago when they were much more diminshed. His oxygen requirements are less than two days ago. His pain control is managed with medications which he was taking at home. His appetite has been fair. He is voiding using the urinal with family assisting him at the bedside. He is using the bedside commode for bowel movements. Miralax was held today since he had 4 loose bowel movements in 24 hours, twice with a small amount of incontinence.
--- NOTE | 2021-06-27 22:39 | NUR ---
Assumed care of pt at 1900. A/Ox4. Maintaining 91-95% on Airvo 30L/40%. LS clear on top, LLL fine crackles, RLL dim. VSS. Pt still has mouth sores that are not relieved by the magic mouthwash. Family at bedside and continues to be very helpful. Will update as changes occur.
--- NOTE | 2021-06-28 09:46 | NUR ---
AM NOTE: PATIENT ALERT AND ORIENTED X4. FORGETLFULL AT TIMES. FAMILY AT BEDSIDE. OVERALL WEAK AND SOB WITH MOVEMENTS. PLAN TO GET UP IN CHAIR THIS AM WITH PT. ONE PERSON ASSIST WITH WALKER. COMPLAINS OF GENERALIZED PAIN TO ABDOMEN, NECK, SHOULDERS, AND COCCYX. SCHEDULED MEDS GIVEN THIS AM, WITH PRN PAIN MEDS AVAILABLE IF NEEDED. PATIENT STATES PAIN IS STARTING TO DECREASE. TELE SHOWING SINUS TACH WITH HR 100-110'S. DENIES CHEST PAIN/PRESSURE. BP STABLE. 2 EPISODES OF VTACH THIS AM RECORDED WITH TELE 21 BEAT RUN AND [address] ALVES AWARE OF VTACH. NO NEW ORDERS AT THIS TIME. PATIENT WAS NONSYMPTOMATIC. ON AIRVO AT 30L AND 40%. LUNGS SOUNDING CLEAR WITH DIMINISHED AIR FLOW. OCCASIONAL WEAK COUGH. DENIES ABDOMINAL PAIN/NAUSEA. TOLERATING PO DIET. TAKING PILL WHOLE WITH WATER. STATES HE FEELS ANXIOUS AT TIMES. Q2 TURNING AND NEEDED. RED COCCYX. SMALL SORES TO TONGUE AND MOUTH, NYSTATIN SWISH AND SWALLOW WELL MAGIC MOUTH WASH. FAMILY AT BEDSIDE HELPING WITH CARES. CALL LIGHT IN REACH. WILL CONTINUE TO MONITOR.
--- NOTE | 2021-06-28 10:52 | NUR ---
UPDATE: PATIENT HAD 15 BEAT RUN OF SVT PER TELE. TELE STRIP RECORDED. CALL PLACED TO DR. ALVES. MESSAGE LEFT. PATIENT NONSYMPTOMATIC. WILL CONTINUE TO MONITOR.
--- NOTE | 2021-06-28 12:21 | NUR ---
UPDATE: PATIENT UP IN RECLINER AT THIS TIME EATING LUNCH. PAIN MEDS AND ATIVAN GIVEN PER REQUEST. TELE REPORT ADDITIONAL 12 BEAT RUN OF SVT. PATIENT NONSYMPTOMATIC. CALL PLACED TO DR. ALVES, MESSAGE LEFT. VITAL SIGNS STABLE. WILL CONTINUE TO MONITOR.
--- NOTE | 2021-06-28 14:00 | NUR ---
UPDATE: DR. ALVES UPDATED. ADDITIONAL RUN OF SVT AT 1343 THIS AFTERNOON. SEE TELE STRIP - 6 BEAT RUN, FOLLOWED BY NORMAL BEAT AND ADDITIONAL 5 BEAT RUN. PATIENT NONSYMPTOMATIC. IN RECLINER AT THIS TIME. REPOSITIONING NEEDED. AT BEDSIDE ASSISTING PATIENT WITH URINAL. WILL CONTINUE TO MONITOR.
--- NOTE | 2021-06-28 18:45 | NUR ---
SHIFT SUMMARY: SEE PREVIOUS NOTE THROUGHOUT SHIFT. PATIENT REMAINS ALERT. CONFUSION WHEN WAKING UP FROM NAPS, ASKING WHERE HE IS AND WHAT THINGS ARE IN ROOM. AGREES PATIENT IS SLIGHTLY MORE CONFUSED TODAY. UPON QUESTIONS STATES PATIENT HAS HAD EPISODES OF CONFUSION THE PAST COUPLE OF DAYS. REORIENTS EASILY. DENIES NUMBNESS/TINGLING. REMAINS ON AIRVO AT 30L AND 40-45% THROUGHOUT SHIFT NEEDING A BOOST IN O2 WHEN UP MOVING AROUND. SOB WITH MOVEMENT. TELE SHOWING SINUS TACH WITH EPISODES OF SVT, NONSYMPTOMATIC, RECORDED IN CHART. PATIENT'S HR BEGAN SHIFT AVERAGING LOW 100'S. PATIENT NOW SUSTAINING HIGH 110'S -120'S. DR. ALVES AWARE, SEE EMAR FOR NEW ORDERS. DENIES ABDOMINAL PAIN/NAUSEA. SMALL LOOSE DARK BOWEL MOVEMENT TODAY. UP TO BSC WITH 2 PERSON ASSIST. VERY WEAK AND SOB WHEN UP. HR INCREASING TO 130-140'S WHEN UP MOVING AROUND. TAKING PILLS WHOLE. Q4 PAIN MEDS AND ADDITIONAL PRN NEEDED. PER PATIENT HOME SCHEDULE. PAIN MEDS WITH GOOD RELIEF TEMPORARY. NYSTATIN SWISH AND SWALLOW AND MAGIC MOUTHWASH FOR MOUTH SORES. COCCYX RED, Q2 TURNING AND NEEDED. PATIENT UP IN RECLINER MOST OF DAY. USING WALKER AND 1-2 PERSON ASSIST FOR TRANSFERS. REMAINS AT BEDSIDE. WILL CONTINUE TO MONITOR AND REPORT OFF TO ONCOMING RN. CALL LIGHT IN REACH.
--- NOTE | 2021-06-28 22:30 | NUR ---
PATIENT A/OX3. REPORTS PAIN 7/10 IN HIS SHOULDERS, RIBS, ABOMDEN, AND JOINTS, STATES THIS PAIN IS NOT NEW FOR HIM. MEDICATED PER EMAR. ON AIRVO 30L FIO2 45%. HEART RATE IS IN THE 90'S. 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 TRANSFERRED FROM CHAIR TO BED WITH 2 ASSIST. HAS LARGE REDDENED AREA TO BUTTOCKS/COCCYX WITH A SCABBED AREA APPROX 5 CM X 5 CM. THERE WAS SOME ADHESIVE FROM A PRIOR ALLEVYN DRESSING THAT I CLEANED OFF. I CLEANED THE AREA WITH SOAP AND WATER AND PATTED DRY. PATIENT DID NOT WANT AN ALLEVYN DRESSING BECAUSE HE STATES THAT IT IRRITATES HIS SKIN. TURNING Q2H. SON AT BEDSIDE. PATIENT'S BOOST PLACED IN FRIDGE. CALL LIGHT IN REACH.
--- NOTE | 2021-06-28 23:03 | NUR ---
PATIENT HAD A 19 BEAT RUN OF SVT, PATIENT LAYING IN BED AT THIS TIME WITH EYES CLOSED, APPEARED TO BE SLEEPING. SON AT BEDSIDE STATES PATIENT HAS BEEN RESTING.
--- NOTE | 2021-06-29 06:26 | NUR ---
SHIFT SUMMARY: PATIENT A/OX3. MEDICATED FOR CHRONIC PAIN PER EMAR. ON AIRVO 30L FIO2 40%. HEART RATE IN THE 80'S-90'S, HAD TWO RUNS OF SVT THIS SHIFT, ONE WAS 12 BEATS AND THE OTHER WAS 19 BEATS. HAS SORES TO MOUTH BUT HE DID NOT WANT MAGIC MOUTHWASH. REPOSITIONED Q2H, BUTTOCKS IS RED WITH A SCABBED AREA. PRESSURE SORE NOTED TO THE TOP OF HIS LEFT EAR, PICTURES TAKEN, WOUND COVERED WITH ALLEVYN FOAM AND SECURED WITH TEGADERM. SON IN ROOM THROUGHOUT THE SHIFT. BOOST IN FRIDGE. WILL CONTINUE TO MONITOR AND REPORT TO ONCOMING RN.
--- NOTE | 2021-06-29 07:37 | NUR ---
PATIENT REPORTED CHEST PRESSURE IN THE MIDDLE OF HIS CHEST. STATES IT DOESN'T HURT WORSE WHEN HE BREATHES IN DEEP. STATES THAT IT FEELS NEW. STATED THAT MAYBE HE NEEDED TO HAVE A BOWEL MOVEMENT. ASSISTED PATIENT ON BEDPAN AND HE HAD A BOWEL MOVEMENT. STATED THAT IT DID NOT HELP HIS CHEST PRESSURE. STATES THAT HIS PRESSURE FEELS LIKE HE CAN'T TAKE A DEEP BREATH. CALLED DR. ALVES AND NOTIFIED HIM OF THE ABOVE. DISCUSSED HEART RATE, IN THE 100'S AND THAT HE HAD TWO RUNS OF SVT LAST NIGHT, ONE WAS 12 BEATS AND ONE WAS 19 BEATS. ORDERS RECEIVED FOR EKG NOW, TROPONIN NOW, AND CHEST XRAY NOW.
--- NOTE | 2021-06-29 17:27 | NUR ---
SHIFT SUMMARY; ASSUMED CARE AT 0700, A/A/OX4. FAMILY AT BEDSIDE. AIRVO 30L 45%. UP TO CHAIR DURING SHIFT FOR SEVERAL HOURS. DESATURATION TO 78 WITH EXERCTION. RECOVERY TO LOW 90'S IN 5-10 MINS. VSS, USES URINAL, REPOSITIONED WITH ASSISTANCE. COCCYX RED WITHOUT BREAKDOWN. DECLINES MEPILEX. FAMILY ASSISTS WITH MEALS, PLEASANT AND COOPERATIVE WITH CARE. NO ACUTE MEDICAL CHANGES, WILL CONTINUE TO MONITOR AND TREAT UNTIL CHANGE OF SHIFT.
[2021-06-30 04:53] LABS: BASOPHILS PERCENT AUTO 0 % (0-2); EOSINOPHILS ABSOLUTE AUTO 0.64 K/mm3 (0.00-0.68); EOSINOPHILS PERCENT AUTO 8 % (0-6); Hematocrit 38.3 % (37.0-53.0); Hemoglobin 12.7 g/dL (13.5-17.5); IMMATURE GRAN ABSOLUTE AUTO 0.08 K/mm3 (0.00-0.10); IMMATURE GRAN PERCENT AUTO 1 % (0-1); LYMPHOCYTES ABSOLUTE AUTO 0.64 K/mm3 (0.84-5.20); LYMPHOCYTES PERCENT AUTO 8 % (21-46); MONOCYTES ABSOLUTE AUTO 0.56 K/mm3 (0.16-1.47); MONOCYTES PERCENT AUTO 7 % (4-13); Mean Corpuscular HGB Conc 33.2 g/dL (31.5-36.5); Mean Corpuscular Volume 87 fL (80-100); Mean Platelet Volume 9.3 fL (9.1-12.4); NEUTROPHILS ABSOLUTE AUTO 6.19 K/mm3 (1.96-9.15); NEUTROPHILS PERCENT AUTO 76 % (41-73); Platelet Count 223 K/mm3 (150-400); RDW Coefficient Variation 13.3 % (11.7-14.2); Red Blood Cell Count 4.38 M/mm3 (4.30-5.90); White Blood Cell Count 8.11 K/mm3 (4.00-11.30)
[2021-06-30 05:14] LABS: Albumin, Blood 2.7 g/dL (3.4-5.0); Anion Gap 6 mmol/L (6-16); Blood Urea Nitrogen 42 mg/dL (8-24); Bun/Creatinine Ratio 38.9 (12.0-20.0); CO2, Blood 30 mmol/L (21-32); Calcium, Blood 8.8 mg/dL (8.5-10.1); Chloride, Blood 100 mmol/L (98-108); Creatinine, Blood 1.08 mg/dL (0.60-1.20); Glomerular Filtration Rate >60 (60-); Glucose, Blood 118 mg/dL (70-99); Magnesium, Blood 2.4 mg/dL (1.6-2.4); Phosphorus, Blood 3.8 mg/dL (2.5-4.9); Potassium, Blood 4.5 mmol/L (3.5-5.5); Sodium, Blood 136 mmol/L (136-145)
--- NOTE | 2021-06-30 17:51 | NUR ---
SHIFT SUMMARY; ASSUMED CARE AT 0700, FAMILY IN ROOM DURING SHIFT ASSISTING WITH CARE. A/A/0X4, REMAINS ON AIRVO AT 30L 45%. UP TO CHAIR TODAY FOR SEVERAL HOURS, REPOSITIONS SELF IN BED, COCCYX REMAINS RED WITH NO SKIN BREAKAGE. DECLINES BANDAGE OR MEPILEX DUE TO NOT WANTING ADHESIVE ON SKIN. VSS THROUGHOUT SHIFT, HR 90-100. ORAL CARE AND DEANDRE CARE TODAY WITH FAMILY ASSISTANCE. USES URINAL IN BED, NO ACUTE MEDICAL CHANGES, WILL CONTINUE TO MONITOR AND TREAT UNTIL CHANGE OF SHIFT.
--- NOTE | 2021-07-01 03:58 | NUR ---
End of shift summary: Overnight without issues, getting PRNs around the clock, pain still an issue mostly in chest/ back, VSS and O2 demand is slowly trending down currently at (40%/ 20L), also mild confusion at night, possible hospital delirium/ PRNs, Son is in room, will continue to monitor Carlos Welsh RN
[2021-07-01 06:50] LABS: BASOPHILS ABSOLUTE AUTO 0.01 K/mm3 (0.00-0.23); BASOPHILS PERCENT AUTO 0 % (0-2); EOSINOPHILS ABSOLUTE AUTO 0.54 K/mm3 (0.00-0.68); EOSINOPHILS PERCENT AUTO 9 % (0-6); Hematocrit 36.9 % (37.0-53.0); Hemoglobin 12.3 g/dL (13.5-17.5); IMMATURE GRAN ABSOLUTE AUTO 0.07 K/mm3 (0.00-0.10); IMMATURE GRAN PERCENT AUTO 1 % (0-1); LYMPHOCYTES ABSOLUTE AUTO 0.67 K/mm3 (0.84-5.20); LYMPHOCYTES PERCENT AUTO 11 % (21-46); MONOCYTES ABSOLUTE AUTO 0.55 K/mm3 (0.16-1.47); MONOCYTES PERCENT AUTO 9 % (4-13); Mean Corpuscular HGB 29.1 pg (26.0-34.0); Mean Corpuscular HGB Conc 33.3 g/dL (31.5-36.5); Mean Corpuscular Volume 87 fL (80-100); NEUTROPHILS ABSOLUTE AUTO 4.53 K/mm3 (1.96-9.15); NEUTROPHILS PERCENT AUTO 71 % (41-73); Platelet Count 185 K/mm3 (150-400); RDW Coefficient Variation 13.4 % (11.7-14.2); RDW Standard Deviation 42.5 fL (35.1-46.3); Red Blood Cell Count 4.22 M/mm3 (4.30-5.90); White Blood Cell Count 6.37 K/mm3 (4.00-11.30)
[2021-07-01 07:01] LABS: Albumin, Blood 2.6 g/dL (3.4-5.0); Anion Gap 6 mmol/L (6-16); Blood Urea Nitrogen 48 mg/dL (8-24); Bun/Creatinine Ratio 35.3 (12.0-20.0); CO2, Blood 31 mmol/L (21-32); Calcium, Blood 8.6 mg/dL (8.5-10.1); Chloride, Blood 98 mmol/L (98-108); Creatinine, Blood 1.36 mg/dL (0.60-1.20); Glomerular Filtration Rate 51 (60-); Glucose, Blood 103 mg/dL (70-99); Magnesium, Blood 2.6 mg/dL (1.6-2.4); Phosphorus, Blood 4.9 mg/dL (2.5-4.9); Potassium, Blood 4.9 mmol/L (3.5-5.5); Sodium, Blood 135 mmol/L (136-145)
--- NOTE | 2021-07-01 18:11 | NUR ---
SHIFT SUMMARY PT REMAINED ALERT AND ORIENTED X4 T/O SHIFT. HE IS PLEASANT AND COOPERATIVE WITH CARE BUT IS HARD OF HEARING. FAMILY HAS BEEN AT BEDSIDE T/O SHIFT, SON WILL STAY WITH PATIENT OVERNIGHT. SPO2 MAINTAINED ABOVE 90% VIA AIRVO AT 25L, 40% FIO2. PT BECOMES SHORT OF BREATH UPON EXERTION. TELE MONITORING IS IN PLACE, HR SINUS RYTHM 98 PER REPORT. PATIENT REPORTED HE LIVES AT A PAIN 6/10 THAT IS GENERALIZED T/0, SEE EMAR FOR PAIN MANAGEMENT. PT AMBULATED TO CHAIR AND REMAINED IN CHAIR FOR MAJORITY OF SHIFT. FAMILY IS AWARE OF EXCORIATION ON COCCYX AND REPORTED THAT THEY PREFER TO LEAVE IT OPEN TO AIR, THIS NURSE CLEANED COCCYX AREA AND APPLIED CALAMINE LOTION. HE USES BEDSIDE URINAL TO VOID WITH ASSISTANCE FROM FAMILY. NO ACUTE CHANGES NOTED DURING SHIFT. WILL CONTINUE TO MONITOR UNTIL REPORT GIVEN.
[2021-07-02 05:03] LABS: BASOPHILS ABSOLUTE AUTO 0.01 K/mm3 (0.00-0.23); BASOPHILS PERCENT AUTO 0 % (0-2); EOSINOPHILS ABSOLUTE AUTO 0.46 K/mm3 (0.00-0.68); EOSINOPHILS PERCENT AUTO 7 % (0-6); Hematocrit 37.4 % (37.0-53.0); Hemoglobin 12.6 g/dL (13.5-17.5); IMMATURE GRAN ABSOLUTE AUTO 0.07 K/mm3 (0.00-0.10); IMMATURE GRAN PERCENT AUTO 1 % (0-1); LYMPHOCYTES ABSOLUTE AUTO 0.74 K/mm3 (0.84-5.20); LYMPHOCYTES PERCENT AUTO 12 % (21-46); MONOCYTES ABSOLUTE AUTO 0.51 K/mm3 (0.16-1.47); MONOCYTES PERCENT AUTO 8 % (4-13); Mean Corpuscular HGB 28.9 pg (26.0-34.0); Mean Corpuscular HGB Conc 33.7 g/dL (31.5-36.5); Mean Corpuscular Volume 86 fL (80-100); Mean Platelet Volume 9.7 fL (9.1-12.4); NEUTROPHILS ABSOLUTE AUTO 4.51 K/mm3 (1.96-9.15); NEUTROPHILS PERCENT AUTO 72 % (41-73); Platelet Count 210 K/mm3 (150-400); RDW Standard Deviation 40.7 fL (35.1-46.3); Red Blood Cell Count 4.36 M/mm3 (4.30-5.90)
--- NOTE | 2021-07-02 05:26 | NUR ---
End of Shift summary: Pt remains about the same, some slow improvements to O2 demand, VSS Aervo @40%/ 20L with sats low 90s%. son in room, pt still getting PRNs Q4hrs, will continue to monitor Carlos Welsh RN
[2021-07-02 05:29] LABS: Albumin, Blood 2.7 g/dL (3.4-5.0); Anion Gap 5 mmol/L (6-16); Blood Urea Nitrogen 45 mg/dL (8-24); Bun/Creatinine Ratio 37.2 (12.0-20.0); CO2, Blood 32 mmol/L (21-32); Calcium, Blood 8.8 mg/dL (8.5-10.1); Chloride, Blood 95 mmol/L (98-108); Creatinine, Blood 1.21 mg/dL (0.60-1.20); Glomerular Filtration Rate 59 (60-); Glucose, Blood 98 mg/dL (70-99); Magnesium, Blood 2.4 mg/dL (1.6-2.4); Phosphorus, Blood 4.2 mg/dL (2.5-4.9); Potassium, Blood 5.3 mmol/L (3.5-5.5); Sodium, Blood 132 mmol/L (136-145)
--- NOTE | 2021-07-02 16:07 | NUR ---
SHIFT SUMMARY Pt has been a/o x 4 today. He has ongoing acute on chronic pain and has been medicated per EMAR. Dr Centeno asked that we try and titrate his FiO2 down today so RT was notified and he has been on 30 LPM with 30 % FiO2 and has maintained sats above 90 while at rest. He does continue to desat with any exertion or eating/drinking but then he is able to recover quickly. The family wanted him to try and get up and walk today so this was discussed with PT. The pt is still not able to tolerate ambulation but he did get up to the chair for a while. He is back in the bed now. His has been at the bedside all day and assists with his urinal and other ADLs. Dr Centeno discussed the salvage determiner plan with them this afternoon and they agreed that they would like to talk more about the possibility of going home on hospice. Dr Centeno let the [facility] DC maintenance planner know and they should be stopping by to talk with the pt and his . He is able to make his needs known and calls appropriately. His is at the bedside with him and he has his call light in reach.
[2021-07-03 05:17] LABS: BASOPHILS ABSOLUTE AUTO 0.02 K/mm3 (0.00-0.23); BASOPHILS PERCENT AUTO 0 % (0-2); EOSINOPHILS ABSOLUTE AUTO 0.43 K/mm3 (0.00-0.68); EOSINOPHILS PERCENT AUTO 7 % (0-6); Hematocrit 38.6 % (37.0-53.0); Hemoglobin 12.7 g/dL (13.5-17.5); IMMATURE GRAN ABSOLUTE AUTO 0.07 K/mm3 (0.00-0.10); IMMATURE GRAN PERCENT AUTO 1 % (0-1); LYMPHOCYTES ABSOLUTE AUTO 0.81 K/mm3 (0.84-5.20); LYMPHOCYTES PERCENT AUTO 13 % (21-46); MONOCYTES ABSOLUTE AUTO 0.54 K/mm3 (0.16-1.47); MONOCYTES PERCENT AUTO 9 % (4-13); Mean Corpuscular HGB 28.2 pg (26.0-34.0); Mean Corpuscular HGB Conc 32.9 g/dL (31.5-36.5); Mean Corpuscular Volume 86 fL (80-100); Mean Platelet Volume 9.7 fL (9.1-12.4); NEUTROPHILS ABSOLUTE AUTO 4.46 K/mm3 (1.96-9.15); NEUTROPHILS PERCENT AUTO 71 % (41-73); Platelet Count 170 K/mm3 (150-400); RDW Standard Deviation 40.3 fL (35.1-46.3); Red Blood Cell Count 4.51 M/mm3 (4.30-5.90); White Blood Cell Count 6.33 K/mm3 (4.00-11.30)
[2021-07-03 05:42] LABS: Albumin, Blood 2.9 g/dL (3.4-5.0); Anion Gap 5 mmol/L (6-16); Blood Urea Nitrogen 48 mg/dL (8-24); Bun/Creatinine Ratio 37.5 (12.0-20.0); CO2, Blood 32 mmol/L (21-32); Calcium, Blood 9.1 mg/dL (8.5-10.1); Chloride, Blood 94 mmol/L (98-108); Creatinine, Blood 1.28 mg/dL (0.60-1.20); Glomerular Filtration Rate 55 (60-); Glucose, Blood 106 mg/dL (70-99); Magnesium, Blood 2.5 mg/dL (1.6-2.4); Phosphorus, Blood 3.5 mg/dL (2.5-4.9); Sodium, Blood 131 mmol/L (136-145)
--- NOTE | 2021-07-03 06:24 | NUR ---
SHIFT SUMMARY PT ALERT AND ORIENTED X4. HR SR/ST 90'S-100'S W/ PVC'S. ON AIRVO 30L 30% FIO2. SATS OVER 92%. DESATS WITH TALKING, EATING, OR ACTIVITY. AFEBRILE. BP STABLE. GENERALIZED 8/10 PAIN. MEDICATED PER EMAR. MULTIPLE FAMILY MEMBERS IN ROOM, SON STAYS OVERNIGHT. HELPFUL FOR ORAL CARE, Q2 TURNS. IN BED SLEEPING WITH CALL ALARM AT SIDE. WILL CONTINUE TO MONITOR UNTIL REPORT GIVEN TO DAYSHIFT RN
--- NOTE | 2021-07-03 13:41 | NUR ---
SUMMARY OF CARE Pt has been a/o x 4 with ongoing c/o acute on chronic pain and has been medicated per Emar. Rt was able to titrate him down to a high flow NC @ 4 lpm and he has been maintaining in the low to mid 90's. He does still desat with movement or eating/drinking but he recovers quickly. He got up to the recliner for a while this morning with therapy and is back in bed now. His remains at the bedside and is very helpful with his ADLs. They communicate well and use the call light when needed. Report was given to receiving RN.
--- NOTE | 2021-07-03 17:02 | NUR ---
Received notification from [facility] Clinical Coordinator (Apolonia Rosado) that patient as patient is wishing to continue chemotherapy for the next six months he is not currently hospice appropriate. However, after patient reaches his goal of the wedding anniversary or no longer wishes to be on chemotherapy, he would be hospice appropriate and able to be accepted onto service post discharge. Contacted [facility] Vice President Of Instruction (Caty Ricketts) regarding the above. Discussed that patient would likely be better served on home health services and then transition to hospice services once his goal is met or he stops chemotherapy. Will attempt to meet with patient and family today to further discuss the above. Will continue to monitor and follow for discharge. Zari Stephens Referral Liaison
--- NOTE | 2021-07-03 17:02 | NUR ---
Late Entry from 07/03/2021 at 1230: Received referral from [facility] Roof Bolter Operator (Caty Ricketts) on 07/03/2021. Patient is to discharge with orders for hospice and family elected [facility]. Gathered supporting documentation for referral (face sheet, labs, imaging, progress notes, palliative care note, and H&P) and sent to [facility] Clinical Coordinator (Apolonia Rosado) for review of hospice appropriateness and ability to accept patient onto service post discharge. Of note patient is wanting to continue chemotherapy (Tagrisso 80mg QD) as a palliative measure for the next six months. Per [facility] Roof Bolter Operator patient is hoping to make it to his wedding anniversary on December 29. Will await further information from hospice wringer machine operator regarding the above. Zari Stephens Referral Liaison
--- NOTE | 2021-07-03 18:00 | NUR ---
ASSUMED CARE IN AFTERNOON, REPORT FROM SENG. Margarita/Margarita/THOM, SPOUSE AT BEDSIDE. 4L 02 VIA CO. WORKED WITH OT DURING SHIFT. DESAT TO 84 DURING EXERTION WITH RECOVERY APPROX 5 MINS. NO ACUTE MEDICAL CHANGES DURING SHIFT, WILL CONTINUE TOP MONITOR AND TREAT UNTIL CHANGE OF SHIFT.
[2021-07-04 06:02] LABS: BASOPHILS ABSOLUTE AUTO 0.01 K/mm3 (0.00-0.23); BASOPHILS PERCENT AUTO 0 % (0-2); EOSINOPHILS ABSOLUTE AUTO 0.35 K/mm3 (0.00-0.68); EOSINOPHILS PERCENT AUTO 6 % (0-6); Hematocrit 36.4 % (37.0-53.0); Hemoglobin 12.4 g/dL (13.5-17.5); IMMATURE GRAN ABSOLUTE AUTO 0.06 K/mm3 (0.00-0.10); IMMATURE GRAN PERCENT AUTO 1 % (0-1); LYMPHOCYTES ABSOLUTE AUTO 0.66 K/mm3 (0.84-5.20); LYMPHOCYTES PERCENT AUTO 12 % (21-46); MONOCYTES ABSOLUTE AUTO 0.42 K/mm3 (0.16-1.47); MONOCYTES PERCENT AUTO 7 % (4-13); Mean Corpuscular HGB 29.5 pg (26.0-34.0); Mean Corpuscular HGB Conc 34.1 g/dL (31.5-36.5); Mean Corpuscular Volume 87 fL (80-100); Mean Platelet Volume 9.1 fL (9.1-12.4); NEUTROPHILS ABSOLUTE AUTO 4.16 K/mm3 (1.96-9.15); NEUTROPHILS PERCENT AUTO 73 % (41-73); Platelet Count 153 K/mm3 (150-400); RDW Coefficient Variation 13.2 % (11.7-14.2); RDW Standard Deviation 41.3 fL (35.1-46.3); Red Blood Cell Count 4.21 M/mm3 (4.30-5.90); White Blood Cell Count 5.66 K/mm3 (4.00-11.30)
--- NOTE | 2021-07-04 06:06 | NUR ---
SHIFT SUMMARY PT SLEPT INTERMITTENTLY OVERNIGHT, SOME CONFUSION MID SHIFT AND REORIENTED BY SON PRESENT IN ROOM. FAMILY STATES THIS HAS HAPPENED SEVERAL TIMES BEFORE. ORIENTED X2-4. VSS PER PT TREND. ON 4L NC, PAIN CONTROLLED WITH PRN PAIN MEDICATIONS. WILL PASS ON TO DAY RN.
[2021-07-04 06:23] LABS: Albumin, Blood 2.8 g/dL (3.4-5.0); Anion Gap 5 mmol/L (6-16); Blood Urea Nitrogen 50 mg/dL (8-24); Bun/Creatinine Ratio 40.3 (12.0-20.0); CO2, Blood 32 mmol/L (21-32); Calcium, Blood 9.1 mg/dL (8.5-10.1); Chloride, Blood 95 mmol/L (98-108); Creatinine, Blood 1.24 mg/dL (0.60-1.20); Glomerular Filtration Rate 57 (60-); Glucose, Blood 111 mg/dL (70-99); Magnesium, Blood 2.5 mg/dL (1.6-2.4); Phosphorus, Blood 3.8 mg/dL (2.5-4.9); Potassium, Blood 5.2 mmol/L (3.5-5.5); Sodium, Blood 132 mmol/L (136-145)
--- NOTE | 2021-07-04 11:53 | NUR ---
Received referral from [facility] Manager Heavy Duty (Caty Ricketts) on 07/03/2021. Patient is to discharge with orders for home health and elected [facility]. Met with patient and patient's (Cristina Mayers) to further discuss the discharge plan for home with home health and the election of [facility]. Patient and are agreeable to the above. Discussed homebound status definition with patient and . Patient and verbalized understanding. Discussed what home health is vs what it is not (in home caregivers/housekeeping). Patient and verbalized understanding. Discussed the next steps in the process of an initial assessment to determine frequency of visits. Again patient and verbalized understanding. Offered a chance for patient and to ask questions regarding the above of which there were none. At this time patient has no discharge orders entered. Will continue to monitor and follow for discharge. Zari Stephens Referral Liaison
--- NOTE | 2021-07-04 18:26 | NUR ---
Shift summary: Pt remains A&Ox4. VSS. C/o frequent generalized body pain- Roxicodone x1 and scheduled MS contin administered, little change reported in pain control. MD notified, Roxicodone switched to Vicodin per pt request, pain better managed with Vicodin/MS contin regimen. AUO. BM x1. Tolerating current diet. Worked with PT- min assisst utilizing FWW and gait belt- remained in chair most of afternoon. Pt refused OT d/t pain. Possible d/c home with home health tomorrow. Frequent rounds to ensure pt safety. Pt repositioned q2hrs and pressure points offloaded to prevent pressure ulcers. Pt in no apparent distress at this time. Will continue to monitor until transfer of care to oncoming RN.
--- NOTE | 2021-07-05 05:22 | NUR ---
SHIFT SUMMARY PT SLEPT WELL OVERNIGHT, ORIENTED X4, VSS PER PT TREND ON 4L NC. SR/ST ON TELEMETRY. SON AT BEDSIDE. PAIN WELL CONTROLLED WITH PRN MEDICATIONS. WILL PASS ON TO DAY RN
[2021-07-05] MEDS ORDERED: Lopressor 25 mg25 MG PO (14:40)
[2021-07-05] MEDS ORDERED: FAMO10 PO (14:41)
[2021-07-05] MEDS ORDERED: MIRT15 PO (14:41)
[2021-07-05] MEDS ORDERED: MIRALAX17 GM PO (14:42)
[2021-07-05] MEDS ORDERED: FURO20 PO (14:42)
[2021-07-05] MEDS ORDERED: MS Contin15 MG PO (14:43)
[2021-07-05] MEDS ORDERED: LORA.5 PO (14:44)
--- NOTE | 2021-07-05 15:37 | NUR ---
Discharge summary: Pt discharged home with home health. Supplemental O2 delivered to bedside. Discharge instructions provided, pt and family verbalized understanding. Hard scripts provided to pt. Pt in no apparent distress at this time.
--- NOTE | 2021-07-05 17:09 | NUR ---
Patient has now discharged. Gathered all supporting documentation for referral (face sheet, discharge order, med list, H&P, discharge summary, and most recent PT assessment) and sent to [facility] for review. No further interventions required. Zari Stephens Referral Liaison
--- NOTE | 2021-07-05 17:23 | NUR ---
Per Dr. Amy Isbell discharge appropriate. Patient does not oppose discharge. Patient is discharged home with home health order. Wanda Liaison was contacted and notified of discharge. Patient's residence: [address] [place] [address] Date of discharge: 07/05/2021 Date of admission: 06/14/2021 Transportation provided by: [facility] Ordered: Oxygen through [facility]; patient has a walker, but will contact me with any other DME needs. Follow-ups needed: [facility] will contact patient to schedule hospital follow-up with PCP. Reinforced importance of follow-up appointments. Telehealth appointment is optimal for patient. Provider/PCP: [facility]: continue targeted therapy with Tagrisso on follow-up with oncology Confirmed numbers: Patient's home phone: [phone] Comment: Patient to contact PCP with any questions regarding medication management, social service needs, and if condition worsens go to Urgent Care/ER. No barriers to discharge on this date.
== END 2021-07-05 15:45 | disposition home health service (06) | DRG 193 ==
LOC: ER 22:36 → ICUW 06-14 02:00 → PCU 06-14 02:00 → ICUW 06-14 02:43 → PCU 06-14 17:05
PROVIDERS: Family Medicine; Internal Medicine; Internal Medicine Critical Care Medicine; Internal Medicine Endocrinology, Diabetes & Metabolism; Pharmacist; Student in an Organized Health Care Education/Training Program; ADMIT Internal Medicine
PROC: 5A0955A Assistance with Respiratory Ventilation, Greater than 96 Consecutive Hours, High Flow/Velocity Cannula (ICD-10-PCS; principal; 2021-06-17)
DX: J18.9 Pneumonia, unspecified organism (principal); J96.21 Acute and chronic respiratory failure with hypoxia; C34.32 Malignant neoplasm of lower lobe, left bronchus or lung; E87.1 Hypo-osmolality and hyponatremia; B37.0 Candidal stomatitis; I47.2 Ventricular tachycardia; N17.9 Acute kidney failure, unspecified; Z20.822 Contact with and (suspected) exposure to COVID-19; Z51.5 Encounter for palliative care; Z66 Do not resuscitate; K21.9 Gastro-esophageal reflux disease without esophagitis; G89.4 Chronic pain syndrome; E78.5 Hyperlipidemia, unspecified; E29.1 Testicular hypofunction; D64.9 Anemia, unspecified; G62.9 Polyneuropathy, unspecified; I12.9 Hypertensive chronic kidney disease with stage 1 through stage 4 chronic kidney disease, or unspecified chronic kidney disease; M48.061 Spinal stenosis, lumbar region without neurogenic claudication; I27.20 Pulmonary hypertension, unspecified; N40.0 Benign prostatic hyperplasia without lower urinary tract symptoms; N18.31 Chronic kidney disease, stage 3a; F41.9 Anxiety disorder, unspecified; F32.A Depression, unspecified; M17.0 Bilateral primary osteoarthritis of knee; Z96.643 Presence of artificial hip joint, bilateral; Z87.01 Personal history of pneumonia (recurrent); Z90.49 Acquired absence of other specified parts of digestive tract; Z90.89 Acquired absence of other organs; Z98.890 Other specified postprocedural states; Z88.2 Allergy status to sulfonamides; Z79.82 Long term (current) use of aspirin; Z79.899 Other long term (current) drug therapy
CPT/HCPCS: 0202U; 0241U; 36415; 71045; 71260; 80048; 80053; 80069; 80202; 82330; 82565; 83605; 83735; 84145; 84484; 85025; 85610; 85730; 87040; 87070; 87205; 93005; 93010; 93306; 94640; 94660; 94664; 94668; 94760; 94762; 96374; 97110; 97116; 97162; 97167; 97530; 97535; 99285-25; A9270; C1751; J0696; J1644; J1650; J1940; J2060; J2405; J2543; J2920; J2930; J3370; J7030; J7050; J7509; Q9967

== ENCOUNTER → 2021-08-05 | Outpatient (CLI) | payer MEDICARE, OTHER ==
[~2021-08-05] MED LIST changes: +ATEN25 PO; +CATAPRES0.1 MG PO; +FAMO10 PO; +FURO20 PO; +LORA.5 PO; +Lopressor 25 mg25 MG PO; +MIRALAX17 GM PO; +MIRT15 PO; +MS Contin15 MG PO; +ONDA4 PO; +TADA10TA; +THERA-D2000 UNIT PO
[2021-08-05 16:52] LABS: BASOPHILS ABSOLUTE AUTO 0.03 K/mm3 (0.00-0.23); BASOPHILS PERCENT AUTO 1 % (0-2); EOSINOPHILS ABSOLUTE AUTO 0.34 K/mm3 (0.00-0.68); EOSINOPHILS PERCENT AUTO 6 % (0-6); Hematocrit 34.9 % (37.0-53.0); Hemoglobin 11.6 g/dL (13.5-17.5); IMMATURE GRAN ABSOLUTE AUTO 0.08 K/mm3 (0.00-0.10); IMMATURE GRAN PERCENT AUTO 2 % (0-1); LYMPHOCYTES PERCENT AUTO 21 % (21-46); MONOCYTES ABSOLUTE AUTO 0.48 K/mm3 (0.16-1.47); MONOCYTES PERCENT AUTO 9 % (4-13); Mean Corpuscular HGB 28.9 pg (26.0-34.0); Mean Corpuscular HGB Conc 33.2 g/dL (31.5-36.5); Mean Corpuscular Volume 87 fL (80-100); Mean Platelet Volume 9.7 fL (9.1-12.4); NEUTROPHILS ABSOLUTE AUTO 3.33 K/mm3 (1.96-9.15); NEUTROPHILS PERCENT AUTO 62 % (41-73); Platelet Count 143 K/mm3 (150-400); RDW Coefficient Variation 13.8 % (11.7-14.2); RDW Standard Deviation 43.8 fL (35.1-46.3); Red Blood Cell Count 4.02 M/mm3 (4.30-5.90); White Blood Cell Count 5.36 K/mm3 (4.00-11.30)
[2021-08-05 17:18] LABS: Alanine Aminotransfer (ALT/SGP 21 U/L (12-78); Albumin, Blood 3.8 g/dL (3.4-5.0); Albumin/Globulin Ratio 1.4 (0.8-1.8); Alk Phos 81 U/L (50-136); Anion Gap 2 mmol/L (6-16); Aspartate Aminotrans (AST/SGOT 13 U/L (12-37); Bilirubin, Total 0.4 mg/dL (0.1-1.0); Blood Urea Nitrogen 20 mg/dL (8-24); Bun/Creatinine Ratio 21.2 (12.0-20.0); CO2, Blood 32 mmol/L (21-32); Chloride, Blood 102 mmol/L (98-108); Creatinine, Blood 0.94 mg/dL (0.60-1.20); Globulin, Blood 2.8 g/dL (2.2-4.0); Glomerular Filtration Rate >60 (60-); Glucose, Blood 114 mg/dL (70-99); Potassium, Blood 4.6 mmol/L (3.5-5.5); Sodium, Blood 136 mmol/L (136-145); Total Protein, Blood 6.6 g/dL (6.4-8.2)
== END | disposition home or self-care (01) ==
LOC: LAB SHORT 16:02 → LAB HH 16:02
PROVIDERS: Physician Assistant
DX: N18.31 Chronic kidney disease, stage 3a (principal); J96.11 Chronic respiratory failure with hypoxia
CPT/HCPCS: 80053; 85025

== ENCOUNTER → 2021-10-17 | Outpatient (CLI) | payer MEDICARE, OTHER ==
[2021-10-17 15:33] LABS: BASOPHILS ABSOLUTE AUTO 0.02 K/mm3 (0.00-0.23); BASOPHILS PERCENT AUTO 1 % (0-2); EOSINOPHILS ABSOLUTE AUTO 0.43 K/mm3 (0.00-0.68); EOSINOPHILS PERCENT AUTO 11 % (0-6); Hematocrit 34.7 % (37.0-53.0); Hemoglobin 11.5 g/dL (13.5-17.5); IMMATURE GRAN ABSOLUTE AUTO 0.01 K/mm3 (0.00-0.10); IMMATURE GRAN PERCENT AUTO 0 % (0-1); LYMPHOCYTES PERCENT AUTO 18 % (21-46); MONOCYTES ABSOLUTE AUTO 0.31 K/mm3 (0.16-1.47); MONOCYTES PERCENT AUTO 8 % (4-13); Mean Corpuscular HGB 29.5 pg (26.0-34.0); Mean Corpuscular HGB Conc 33.1 g/dL (31.5-36.5); Mean Corpuscular Volume 89 fL (80-100); Mean Platelet Volume 10.1 fL (9.1-12.4); NEUTROPHILS ABSOLUTE AUTO 2.33 K/mm3 (1.96-9.15); NEUTROPHILS PERCENT AUTO 61 % (41-73); Platelet Count 129 K/mm3 (150-400); RDW Coefficient Variation 11.9 % (11.7-14.2); RDW Standard Deviation 38.5 fL (35.1-46.3)
[2021-10-17 15:38] LABS: Albumin, Blood 3.9 g/dL (3.4-5.0); Albumin/Globulin Ratio 1.4 (0.8-1.8); Bilirubin, Total 0.5 mg/dL (0.1-1.0); Bun/Creatinine Ratio 23.9 (12.0-20.0); Creatinine, Blood 1.17 mg/dL (0.60-1.20); Globulin, Blood 2.8 g/dL (2.2-4.0); Potassium, Blood 4.8 mmol/L (3.5-5.5); Total Protein, Blood 6.7 g/dL (6.4-8.2)
== END | disposition home or self-care (01) ==
LOC: LAB SHORT 11:20 → LAB 11:20
PROVIDERS: Physician Assistant
DX: N18.31 Chronic kidney disease, stage 3a (principal); R06.00 Dyspnea, unspecified
CPT/HCPCS: 80053; 83880; 85025

== ENCOUNTER → 2024-02-19 | Outpatient (CLI) | payer MEDICARE | LOC: LAB 08:54 → LAB SHORT 08:54 | DX: R05.1 Acute cough (principal) | CPT/HCPCS: 87070; 87205 ==

== ENCOUNTER 2024-07-28 11:42 | Day surgery (SDC) | payer MEDICARE, OTHER ==
[~2024-07-28] VITALS: Ht 170.2 cm; Wt 86.3 kg
[~2024-07-28 11:42] MED LIST changes: +Balanced Salt Epinephrine Irrigation Solution 500 mL IR SCH; +Lidocaine HCl/Pf 1% 5 ML VIAL XX SCH; +Moxifloxacin HCL 0.5 MG/0.1 ML 0.4MLSYR LEFTEYE SCH; +NS 500 ML IV ONE; +PHENYLEPHRINE\\TROPICAMIDE\\TETRACAINE OPHTHALMIC DILATING SOLN LEFTEYE PRN; +Povidone-Iodine 450 DROP/30 ML Solution LEFTEYE SCH; +Povidone-Iodine 450 DROP/30 ML Solution ONE; +Tetracaine HCl/Pf 0.5% Opth Soln 4 ml ONE; +Triamcinolone Inj Susp 40 MG / ML 1ML Vial INJ SCH; +Triamcinolone Inj Susp 40 MG / ML 1ML Vial ONE
[2024-07-28] MEDS ORDERED: NITR.4SL SL (12:39)
[2024-07-28] MEDS ORDERED: POTA10T PO (12:40)
[2024-07-28] MEDS ORDERED: ATROVENT HFA12.9 GM IH (12:40)
[2024-07-28] MEDS ORDERED: NS 500 ML IV ONE (12:58)
--- NOTE | 2024-07-28 12:58 | NUR ---
07/28/24 1258 Ephraim Lee TETRACAINE ADMINISTERED AT 1239, PLEDGET PLACED AT 1241.
[2024-07-28] MEDS ORDERED: Midazolam HCl 1MG / ML 2ML Vial ONE (13:05)
[2024-07-28 13:42] VITALS: BP 144/76
[2024-07-28] MEDS ORDERED: Acetaminophen 500 MG Tab ONE (13:46)
--- NOTE | 2024-07-28 14:00 | NUR ---
07/28/24 Dacia Loya PT DISCHARGED VIA HIS OWN WHEELCHAIR, WITH HIS O2 TANK AT 4L. PATIENT ASSISTED INTO PASSENGER SIDE OF PRIVATE VEHICLE.
== END 2024-07-28 14:00 | disposition home or self-care (01) ==
LOC: ORSCSDS 11:42
PROVIDERS: Ophthalmology
PROC: 08RK3JZ Replacement of Left Lens with Synthetic Substitute, Percutaneous Approach (ICD-10-PCS; principal; 2024-07-28 13:00)
DX: H25.813 Combined forms of age-related cataract, bilateral (principal); H21.81 Floppy iris syndrome; I10 Essential (primary) hypertension; K21.9 Gastro-esophageal reflux disease without esophagitis; E78.5 Hyperlipidemia, unspecified; Z79.82 Long term (current) use of aspirin; Z79.899 Other long term (current) drug therapy
CPT/HCPCS: A9270; J2250; J3301; J7040; V2632

== ENCOUNTER 2024-08-04 11:34 | Day surgery (SDC) | payer MEDICARE, OTHER ==
[~2024-08-04] VITALS: Ht 170.2 cm; Wt 85.3 kg
[~2024-08-04 11:34] MED LIST changes: +ATROVENT HFA12.9 GM IH; -Moxifloxacin HCL 0.5 MG/0.1 ML 0.4MLSYR LEFTEYE SCH; +Moxifloxacin HCL 0.5 MG/0.1 ML 0.4MLSYR RIGHTEYE SCH; +NITR.4SL SL; -NS 500 ML IV ONE; -PHENYLEPHRINE\\TROPICAMIDE\\TETRACAINE OPHTHALMIC DILATING SOLN LEFTEYE PRN; +PHENYLEPHRINE\\TROPICAMIDE\\TETRACAINE OPHTHALMIC DILATING SOLN RIGHTEYE PRN; +POTA10T PO; -Povidone-Iodine 450 DROP/30 ML Solution LEFTEYE SCH; +Povidone-Iodine 450 DROP/30 ML Solution RIGHTEYE SCH
[2024-08-04] MEDS ORDERED: GUAI600T33 (12:22)
[2024-08-04] MEDS ORDERED: NS 500 ML IV ONE (12:27)
[2024-08-04] MEDS ORDERED: Midazolam HCl 1MG / ML 2ML Vial ONE (12:46)
[2024-08-04 13:20] VITALS: BP 152/82
--- NOTE | 2024-08-04 13:58 | NUR ---
08/04/24 2021 MARY LIMA PT UP TO BR PRIOR TO DC. IN FOR ALL DC INSTRUCTIONS. PT AND VERY PLEASANT. PT WAS PLACED ON 3.5L O2 VIA N/C WHEN BROUGHT OUT OF OR PT HAS O2 ON WC. SET IT AT 4L FOR DC
== END 2024-08-04 13:58 | disposition home or self-care (01) ==
LOC: ORSCSDS 11:34
PROVIDERS: Ophthalmology
PROC: 08RJ3JZ Replacement of Right Lens with Synthetic Substitute, Percutaneous Approach (ICD-10-PCS; principal; 2024-08-04 13:00)
DX: H25.811 Combined forms of age-related cataract, right eye (principal); H21.81 Floppy iris syndrome; Z96.1 Presence of intraocular lens; I10 Essential (primary) hypertension; E78.5 Hyperlipidemia, unspecified; Z99.81 Dependence on supplemental oxygen; C78.00 Secondary malignant neoplasm of unspecified lung; Z79.899 Other long term (current) drug therapy; Z79.82 Long term (current) use of aspirin
CPT/HCPCS: J2250; J3301; V2632